=== PATIENT | male | born 1980 | race African-American/Black ===

== ENCOUNTER 2017-08-28 10:27 | Emergency (ER) | payer OTHER, MEDICAID, SELFPAY ==
[2017-08-28 10:35] VITALS: BP 122/81; PULSE 83; RESP 14; TEMP 36.2; O2SAT 98; BMI 28.8
--- NOTE | 2017-08-28 12:05 | ED_ITS ---
HPI - Back Pain/Injury <Cinthia Lazo PA-C - Last Filed: 08/28/17 15:24> General Chief Complaint: Back Pain/Injury Stated Complaint: 'BACK PAIN' Time Seen by Provider: 08/28/17 10:28 Source: patient Mode of arrival: ambulatory Limitations: no limitations History of Present Illness HPI Narrative: This 37-year-old patient complains of a 3 day history of mid to low back pain which started after he was moving furniture at home. He bent over and states he felt a twisting sensation in his mid back area. He states that he has been using ibuprofen twice daily and ice, but has not really improved. He wakes feeling stiff in the morning and likely musculature his swollen. He does admit to continued lifting, states he has a new baby at home. He denies any weakness or paresthesia in the extremities. He denies any bowel or bladder changes. No new fever or rash. No other injuries or new complaints. He does have a history of sciatica but denies radiation of the pain. He states that pain is worse with certain movements like bending and twisting Related Data Home Medications Medication Instructions Recorded Confirmed ibuprofen 800 mg PO TID PRN 08/28/17 08/28/17 Previous Rx's Medication Instructions Recorded cyclobenzaprine 10 mg PO Q8H PRN #14 tab 08/28/17 Allergies Allergy/AdvReac Type Severity Reaction Status Date / Time codeine [CODEINE] Allergy Intermediate ITCH Verified 08/28/17 10:37 tramadol [TRAMADOL] Allergy Mild ITCH Verified 08/28/17 10:37 Review of Systems <Cinthia Lazo PA-C - Last Filed: 08/28/17 15:24> Review of Systems All systems reviewed & are unremarkable except as noted in HPI and below Exam <Cinthia Lazo PA-C - Last Filed: 08/28/17 15:24> Narrative Exam Narrative: GENERAL APPEARANCE: Patient sitting comfortably, in no distress. PULMONARY: Lungs clear to auscultation bilaterally CV: Regular rhythm regular without murmur, normal S1 and S2, no S3 or S4 MUSCULOSKELETAL: Generalized moderate tenderness over the midthoracic to mid lumbar musculature most at the mid scapular line bilaterally. Mild tenderness over the spine and paraspinal musculature in same locations. Full AROM shoulders with mild endpoint tenderness. Normal seated trunk flexion, sit: stand. Lower extremity strength 5/5 bilateral hip flexors, knee extensors, foot plantar flexion. Negative modified straight leg raise NEUROLOGIC: Bilateral patellar and Achilles DTRs 1+ with distraction DERM: No exanthem Course <Cinthia Lazo PA-C - Last Filed: 08/28/17 15:24> Orders Ordered: Discontinued Medications Ondansetron HCl (Zofran) 4 mg PO NOW ONE Stop: 08/28/17 10:46 Last Admin: 08/28/17 10:49 Dose: Last Vital Signs Temp 97.1 F L 08/28/17 10:35 Pulse 72 08/28/17 12:59 Resp 17 08/28/17 12:59 BP 134/99 H 08/28/17 12:59 Pulse Ox 100 08/28/17 12:59 <Mohit Howell DO - Last Filed: 08/28/17 16:14> Orders Ordered: Discontinued Medications Ondansetron HCl (Zofran) 4 mg PO NOW ONE Stop: 08/28/17 10:46 Last Admin: 08/28/17 10:49 Dose: Last Vital Signs Temp 97.1 F L 08/28/17 10:35 Pulse 72 08/28/17 12:59 Resp 17 08/28/17 12:59 BP 134/99 H 08/28/17 12:59 Pulse Ox 100 08/28/17 12:59 Discharge Plan Departure Patient Disposition: Home, Self-Care Clinical Impression: Lumbar strain, Strain of thoracic region Discharge Date/Time: 08/28/17 13:01 Interventions: ED Discharge Assessment Last Done: 08/28/17 13:00 Instructions: DI for Low Back Pain Activity Restrictions/Additional Instructions: Return as we talked about if you have acutely worsening symptoms, otherwise continue your ibuprofen but increased to 3 times daily. You can add the muscle relaxant as needed, but remember that it can make you sleepy and not to drive or work. You can continue ice it is helpful but you may want to try alternating with heat as well. You can also use topical [id number] medicines or patches such as 4% lidocaine to help with pain. Gentle activity such as walking may be helpful, but avoid repetitive bending, twisting and lifting. This is likely to take a month or 2 to fully heal. Prescriptions: New cyclobenzaprine 10 mg tablet 10 mg PO Q8H PRN (Reason: muscle spasm) Qty: 14 RF: 0 No Action ibuprofen 800 mg Tablet 800 mg PO TID PRN (Reason: Pain (Scale Score 4-6)) RF: 0 <Mohit Howell DO - Last Filed: 08/28/17 16:14> Sign out: I was immediately available in the department for consultation. Documentation has been reviewed. I agree with assessment and plan.
[2017-08-28 12:59] VITALS: BP 134/99; PULSE 72; RESP 17; O2SAT 100
== END 2017-08-28 13:01 | disposition home or self-care (01) ==
PROVIDERS: Emergency Provider Internal Medicine
DX: S39.012A Strain of muscle, fascia and tendon of lower back, initial encounter (principal); S29.019A Strain of muscle and tendon of unspecified wall of thorax, initial encounter; Y93.89 Activity, other specified
CPT/HCPCS: 99282

== ENCOUNTER 2017-10-12 19:28 | Emergency (ER) | payer OTHER, MEDICAID, SELFPAY ==
[2017-10-12 19:50] VITALS: BP 151/99; PULSE 89; RESP 15; TEMP 37; O2SAT 97; BMI 61.9
--- NOTE | 2017-10-12 20:15 | ED.DENTAL ---
HPI - Dental/Oral <Cinthia Lazo PA-C - Last Filed: 10/12/17 21:48> General Chief complaint: Dental/Oral Stated complaint: LEFT SIDE MOUTH SWELLING AND PAIN Time Seen by Provider: 10/12/17 20:15 Source: patient Mode of arrival: ambulatory Limitations: no limitations History of Present Illness HPI Narrative: Patient has a history of problems with left upper teeth that he has been seen here for in the past. He states actually after his last visit he was able to see a dentist and had the tooth extracted. Today, he is having a lot of pain in the tooth socket that is worsening. It is not draining. He has not had fever. He states his dentist was not in today and is out tomorrow, was concerned about possible recurrent infection and came here. He states the pain has been throbbing. He vomited once today he thinks due to the pain, denies any other symptoms MD Complaint: tooth pain Related Data Previous Rx's Medication Instructions Recorded clindamycin HCl 300 mg PO Q6H 7 Days #28 cap 10/12/17 Allergies Allergy/AdvReac Type Severity Reaction Status Date / Time codeine [CODEINE] Allergy Intermediate ITCH Verified 08/28/17 10:37 tramadol [TRAMADOL] Allergy Mild ITCH Verified 08/28/17 10:37 Exam <Cinthia Lazo PA-C - Last Filed: 10/12/17 21:48> Initial Vital Signs Initial Vital Signs: Vital Signs Temperature 98.6 F 10/12/17 19:50 Pulse Rate 89 10/12/17 19:50 Respiratory Rate 15 10/12/17 19:50 Blood Pressure 151/99 H 10/12/17 19:50 Pulse Oximetry 97 10/12/17 19:50 GENERAL APPEARANCE: Patient sitting comfortably, in no distress. HEAD: Moderate left maxillary tenderness EYES: PERRL, EOMI. EARS: Normal auditory canals, TMS intact with normal light reflexes. ORAL CAVITY: At the side of the left 1st upper molar tooth is absent. Socket is mildly erythematous and tender within, no drainage THROAT: Clear. NECK/THYROID: Neck supple, full range of motion, no cervical lymphadenopathy. LUNGS: Clear to auscultation bilaterally, clear to percussion, no cough on exam. HEART: RRR without murmur, nl S1, S2, no S3 or S4. <Mohit [place], DO - Last Filed: 10/13/17 03:02> Initial Vital Signs Initial Vital Signs: Vital Signs Temperature 98.6 F 10/12/17 19:50 Pulse Rate 89 10/12/17 19:50 Respiratory Rate 15 10/12/17 19:50 Blood Pressure 151/99 H 10/12/17 19:50 Pulse Oximetry 97 10/12/17 19:50 Course <Cinthia Lazo PA-C - Last Filed: 10/12/17 21:48> Additional Information: Patient is given initial dose of antibiotic and pain medication with a little bit of improvement. He did not have significant improvement with benzocaine gel and has taken more than recommended dose of ibuprofen already today. He was given a [place] prepack, ice pack, and advised to call dentist's office 1st thing again in the morning as typically there should be somebody on-call. Advised to fill the antibiotic prescription in the morning and continue it if he is not able to see the dentist and he is agreeable Orders Ordered: Discontinued Medications Hydrocodone Bitart/Acetaminophen ([place] 5/325) 1 tab PO NOW ONE Stop: 10/12/17 20:26 Last Admin: 10/12/17 20:40 Dose: 1 tab Hydrocodone Bitart/Acetaminophen (Vicodin Prepack) 1 bottle MISC SEEINSTR ONE Stop: 10/12/17 21:07 Last Admin: 10/12/17 21:22 Dose: 1 bottle Clindamycin HCl (Cleocin) 300 mg PO NOW ONE Stop: 10/12/17 20:26 Last Admin: 10/12/17 20:40 Dose: 300 mg Vital Signs - 8 hr 10/12/17 19:50 10/12/17 21:33 Temperature 98.6 F Pulse Rate 89 76 Respiratory Rate 15 15 Blood Pressure 151/99 H 174/105 H Pulse Oximetry 97 100 <Mohit Howell DO - Last Filed: 10/13/17 03:02> Orders Ordered: Discontinued Medications Hydrocodone Bitart/Acetaminophen ([place] 5/325) 1 tab PO NOW ONE Stop: 10/12/17 20:26 Last Admin: 10/12/17 20:40 Dose: 1 tab Hydrocodone Bitart/Acetaminophen (Vicodin Prepack) 1 bottle MISC SEEINSTR ONE Stop: 10/12/17 21:07 Last Admin: 10/12/17 21:22 Dose: 1 bottle Clindamycin HCl (Cleocin) 300 mg PO NOW ONE Stop: 10/12/17 20:26 Last Admin: 10/12/17 20:40 Dose: 300 mg Vital Signs - 8 hr 10/12/17 19:50 10/12/17 21:33 Temperature 98.6 F Pulse Rate 89 76 Respiratory Rate 15 15 Blood Pressure 151/99 H 174/105 H Pulse Oximetry 97 100 Discharge Plan Departure Patient Disposition: Home, Self-Care Clinical Impression: Pain, dental Discharge Date/Time: 10/12/17 21:34 Interventions: ED Discharge Assessment Last Done: 10/12/17 21:33 Instructions: DI for Dental Pain Activity Restrictions/Additional Instructions: It is difficult to tell whether your pain tonight is coming from an early infection, or a rotted tooth socket, or a little bit of both. You have been given an initial dose of antibiotic tonight and I have sent a prescription into the pharmacy for you. You also have a few pain pills for tonight and an ice pack. You should call your dentist office 1st thing in the morning as typically there will be somebody on-call for emergencies or a pager that you can reach for this even if he is not in the office. If your being seen tomorrow morning, then you can wait to orange picker the antibiotic prescription. If not, you should go ahead and continue it this weekend and see your dentist as soon as possible Prescriptions: New clindamycin HCl 300 mg capsule 300 mg PO Q6H 7 Days Qty: 28 RF: 0 Referrals: Iggy Akbar DMD [Other] <Mohit Howell DO - Last Filed: 10/13/17 03:02> [facility] Attending [place]anza Attestation: I was immediately available in the department for consultation. Documentation has been reviewed. I agree with assessment and plan.
[2017-10-12] MEDS: CLINDAMYCIN 150 MG CAPSULE 300 MG PO (20:40)
[2017-10-12] MEDS: HYDROCODONE/ACET 5/325 TABLET 1 TAB PO (20:40)
[2017-10-12] MEDS: HYDROCODONE/ACET 5/325 PREPACK 1 BOTTLE MISC (21:22)
[2017-10-12 21:33] VITALS: BP 174/105; PULSE 76; RESP 15; O2SAT 100
== END 2017-10-12 21:34 | disposition home or self-care (01) ==
PROVIDERS: Emergency Provider Internal Medicine
DX: K08.89 Other specified disorders of teeth and supporting structures (principal)
CPT/HCPCS: 99282; 99283

== ENCOUNTER 2018-04-30 06:52 | Emergency (ER) | payer OTHER, MEDICAID, SELFPAY ==
[2018-04-30 07:13] VITALS: BP 150/90; PULSE 88; RESP 13; TEMP 36.7; O2SAT 100
--- NOTE | 2018-04-30 07:27 | ED.BACK ---
HPI - Back Pain/Injury General Chief Complaint: Back Pain/Injury Stated Complaint: back pain Time Seen by Provider: 04/30/18 07:26 Source: patient and family Mode of arrival: ambulatory Limitations: no limitations History of Present Illness HPI Narrative: This is a 38-year-old male who comes to the emergency department with complaint of low back pain. Patient has had some chronic low back pain this is a little bit worse than typical. 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 He states he probably pushes about 58682 lb worth of products any given day. Patient states that he has noticed he has had pain kind of along his entire back but is a little bit worse the lower back. It just radiates down into the buttocks bilaterally. He has had a little bit of tingling in his toes. Not having any weakness. He is not having any other numbness. He is not having any saddle anesthesia. He has not had any bowel or bladder incontinence. Patient has not had any fevers, no cold cough or congestion. He states that his symptoms seem to be worse in the evening particularly when he tries to lay down and sleep or when he is less distracted by the day. He has tried ibuprofen at home without much improvement. He has not tried any muscle relaxants. Patient has not had any imaging of his back in the past. Related Data Previous Rx's Medication Instructions Recorded diazepam 2 mg PO BID-TID PRN #10 tab 04/30/18 ibuprofen 800 mg PO TID PRN #20 tab 04/30/18 Allergies Allergy/AdvReac Type Severity Reaction Status Date / Time codeine [CODEINE] Allergy Intermediate ITCH Verified 08/28/17 10:37 tramadol [TRAMADOL] Allergy Mild ITCH Verified 08/28/17 10:37 Review of Systems Review of Systems ROS Unobtainable: All systems reviewed & are unremarkable except as noted in HPI and below Constitutional Denies chills, Denies fever(s) and Denies weakness ENT Ears, Nose, Mouth, and Throat: Denies neck pain Cardiovascular Denies chest pain and Denies dyspnea Respiratory Denies cough and Denies dyspnea Gastrointestinal Gastrointestinal: Denies abdominal pain, Denies fecal incontinence, Denies diarrhea, Denies nausea and Denies vomiting Genitourinary Denies urinary hesitancy, Denies urinary incontinence and Denies urinary urgency Musculoskeletal Reports back pain, Reports limited range of motion, Denies muscle weakness, Denies neck pain, Denies numbness, Reports radiating pain into limb (bilateral thighs) and Reports tingling (toes) Integumentary/Breasts Denies rash Neurologic Denies focal weakness, Denies numbness, Reports radicular pain, Denies sensory deficit, Reports tingling (toes) and Denies weakness [facility] Medical History HTN (hypertension) (Chronic) Sciatica (Chronic) Left hand fracture (Resolved) Surgical History History of eye surgery (Resolved) Social History Smoking Status: Never smoker alcohol intake: never substance use type: marijuana Exam Narrative Exam Narrative: GENERAL: Alert and oriented x three, well-nourished, well-appearing male in moderate distress HEENT: Head normocephalic, atraumatic, EOMI, pupils reactive, face symmetric, moist mucous membranes NECK: Supple, full range of motion CARDIOVASCULAR: Regular rate and rhythm without murmurs, rubs or gallops. RESPIRATORY: Breath sounds equal bilaterally, no wheezes rales or rhonchi. ABDOMEN: Soft, nontender. Normoactive bowel sounds all 4 quadrants. No guarding or rebound, rigidity, no mass : No CVA tenderness BACK: No cervical, thoracic or lumbar vertebral point tenderness. Patient has muscle tightness on the right paraspinal and quadratus region. Patient has decreased range of motion. Patient's gait is antalgic. Muscle strength is 5/5 in lower extremities, DTRs are 2/4 and lower extremities. Dorsalis pedis and tibialis pulses are 2+ and lower extremities. Sensation is intact in the lower extremities. EXTREMITIES: Normal range of motion, no clubbing or edema. Neurovascularly intact NEUROLOGICAL: Cranial nerves II through XII grossly intact. Moving all extremities SKIN: Warm, dry, no petechiae, no rashes or lesions. Initial Vital Signs Initial Vital Signs: Vital Signs Temperature 98.1 F 04/30/18 07:13 Pulse Rate 88 04/30/18 07:13 Respiratory Rate 13 04/30/18 07:13 Blood Pressure 150/90 H 04/30/18 07:13 Pulse Oximetry 100 04/30/18 07:13 Course Orders Ordered: Discontinued Medications Diazepam (Valium) 2 mg PO NOW ONE Stop: 04/30/18 07:35 Last Admin: 04/30/18 07:51 Dose: 2 mg Ketorolac Tromethamine (Toradol) 60 mg IM NOW ONE Stop: 04/30/18 07:35 Last Admin: 04/30/18 07:42 Dose: 60 mg Vital Signs - 8 hr 04/30/18 07:13 04/30/18 08:14 Temperature 98.1 F Pulse Rate 88 88 Respiratory Rate 13 13 Blood Pressure 150/90 H 140/90 Pulse Oximetry 100 99 MDM - Back Pain/Injury Imaging Data lspine xray: Radiologist's impression: [address] [address] XRay Report Signed Patient: Hi Cueto MR#: [id number] : 1980 Acct:[id number] Age/Sex: 38 / M Date of Service: 04/30/18 Loc: ED Accession Number: [id number] Procedure: XR lumbar spine 2-3V Ordering Provider: Dee Hernandez D.O. PROCEDURE: XR LUMBAR SPINE 2-3V INDICATIONS: back pain TECHNIQUE: 3 views of the lumbar spine were acquired. COMPARISON: None. FINDINGS: Bones: 5 [id number] vertebrae are present. There is normal bony alignment. No vertebral body compression fractures. No suspicious bony lesions. Soft tissues: Overlying bowel gas pattern is normal. No suspicious soft tissue calcifications. IMPRESSION: No trauma found, source of back pain is not seen. Dictated by: Julián Singleton M.D. on 04/30/2018 at 9:00 Approved by: Julián Singleton M.D. on 04/30/2018 at 9:00 [facility] Narrative Medical decision making narrative: Patient more comfortable after medications. Given rx for ibuprofen and valium. Patient imaging does not show any concerning lesions. Plan for follow up. Work note for two days given Discharge Plan Departure Patient Disposition: Home Clinical Impression: Back pain Discharge Date/Time: 04/30/18 09:32 Interventions: ED Discharge Assessment Last Done: 04/30/18 08:14 Instructions: Back Pain (Alternative Therapy) Activity Restrictions/Additional Instructions: Follow-up with primary care, call for an appointment. Take ibuprofen 800 mg every 8 hr as needed for pain. You may also take Tylenol up to a 1000 mg every 8 hr as needed for pain. You may also take muscle relaxant every 8 hours as needed, this medication can make you sleepy so do not drive, perform hazards activities or make any major decisions while taking it. Return to the emergency department for fevers greater than 100.4, rapidly worsening back pain, new weakness, numbness, loss of bowel or bladder control or other new or concerning symptoms. Prescriptions: New diazepam 2 mg tablet 2 mg PO BID-TID PRN (Reason: muscle spasm) Qty: 10 RF: 0 ibuprofen 800 mg tablet 800 mg PO TID PRN (Reason: pain) Qty: 20 RF: 0 Referrals: [facility] [Provider Group] [facility] [Provider Group] [facility] [Provider Group] [facility] [Provider Group] Stand Alone Forms: Work Release Note
--- NOTE | 2018-04-30 07:40 | ED_ITS ---
HPI - Back Pain/Injury General Chief Complaint: Back Pain/Injury Stated Complaint: back pain Time Seen by Provider: 04/30/18 07:26 Source: patient and family Mode of arrival: ambulatory Limitations: no limitations History of Present Illness HPI Narrative: This is a 38-year-old male who comes to the emergency department with complaint of low back pain. Patient has had some chronic low back pain this is a little bit worse than typical. 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 He states he probably pushes about 99184 lb worth of products any given day. Patient states that he has noticed he has had pain kind of along his entire back but is a little bit worse the lower back. It just radiates down into the buttocks bilaterally. He has had a little bit of tingling in his toes. Not having any weakness. He is not having any other numbness. He is not having any saddle anesthesia. He has not had any bowel or bladder incontinence. Patient has not had any fevers, no cold cough or congestion. He states that his symptoms seem to be worse in the evening particularly when he tries to lay down and sleep or when he is less distracted by the day. He has tried ibuprofen at home without much improvement. He has not tried any muscle relaxants. Patient has not had any imaging of his back in the past. Related Data Previous Rx's Medication Instructions Recorded diazepam 2 mg PO BID-TID PRN #10 tab 04/30/18 ibuprofen 800 mg PO TID PRN #20 tab 04/30/18 Allergies Allergy/AdvReac Type Severity Reaction Status Date / Time codeine [CODEINE] Allergy Intermediate ITCH Verified 08/28/17 10:37 tramadol [TRAMADOL] Allergy Mild ITCH Verified 08/28/17 10:37 Review of Systems Review of Systems ROS Unobtainable: All systems reviewed & are unremarkable except as noted in HPI and below Constitutional Denies chills, Denies fever(s) and Denies weakness ENT Ears, Nose, Mouth, and Throat: Denies neck pain Cardiovascular Denies chest pain and Denies dyspnea Respiratory Denies cough and Denies dyspnea Gastrointestinal Gastrointestinal: Denies abdominal pain, Denies fecal incontinence, Denies diarrhea, Denies nausea and Denies vomiting Genitourinary Denies urinary hesitancy, Denies urinary incontinence and Denies urinary urgency Musculoskeletal Reports back pain, Reports limited range of motion, Denies muscle weakness, Denies neck pain, Denies numbness, Reports radiating pain into limb (bilateral thighs) and Reports tingling (toes) Integumentary/Breasts Denies rash Neurologic Denies focal weakness, Denies numbness, Reports radicular pain, Denies sensory deficit, Reports tingling (toes) and Denies weakness [facility] Medical History HTN (hypertension) (Chronic) Sciatica (Chronic) Left hand fracture (Resolved) Surgical History History of eye surgery (Resolved) Social History Smoking Status: Never smoker alcohol intake: never substance use type: marijuana Exam Narrative Exam Narrative: GENERAL: Alert and oriented x three, well-nourished, well- appearing male in moderate distress HEENT: Head normocephalic, atraumatic, EOMI, pupils reactive, face symmetric, moist mucous membranes NECK: Supple, full range of motion CARDIOVASCULAR: Regular rate and rhythm without murmurs, rubs or gallops. RESPIRATORY: Breath sounds equal bilaterally, no wheezes rales or rhonchi. ABDOMEN: Soft, nontender. Normoactive bowel sounds all 4 quadrants. No guarding or rebound, rigidity, no mass : No CVA tenderness BACK: No cervical, thoracic or lumbar vertebral point tenderness. Patient has muscle tightness on the right paraspinal and quadratus region. Patient has decreased range of motion. Patient's gait is antalgic. Muscle strength is 5/5 in lower extremities, DTRs are 2/4 and lower extremities. Dorsalis pedis and tibialis pulses are 2+ and lower extremities. Sensation is intact in the lower extremities. EXTREMITIES: Normal range of motion, no clubbing or edema. Neurovascularly intact NEUROLOGICAL: Cranial nerves II through XII grossly intact. Moving all extremities SKIN: Warm, dry, no petechiae, no rashes or lesions. Initial Vital Signs Initial Vital Signs: Vital Signs Temperature 98.1 F 04/30/18 07:13 Pulse Rate 88 04/30/18 07:13 Respiratory Rate 13 04/30/18 07:13 Blood Pressure 150/90 H 04/30/18 07:13 Pulse Oximetry 100 04/30/18 07:13 Course Orders Ordered: Discontinued Medications Diazepam (Valium) 2 mg PO NOW ONE Stop: 04/30/18 07:35 Last Admin: 04/30/18 07:51 Dose: 2 mg Ketorolac Tromethamine (Toradol) 60 mg IM NOW ONE Stop: 04/30/18 07:35 Last Admin: 04/30/18 07:42 Dose: 60 mg Vital Signs - 8 hr 04/30/18 07:13 04/30/18 08:14 Temperature 98.1 F Pulse Rate 88 88 Respiratory Rate 13 13 Blood Pressure 150/90 H 140/90 Pulse Oximetry 100 99 MDM - Back Pain/Injury Imaging Data lspine xray: Radiologist's impression: [address] [address] XRay Report Signed Patient: Hi Cueto MR#: [id number] : 1980 Acct:[id number] Age/Sex: 38 / M Date of Service: 04/30/18 Loc: ED Accession Number: [id number] Procedure: XR lumbar spine 2-3V Ordering Provider: Dee Hernandez D.O. PROCEDURE: XR LUMBAR SPINE 2-3V INDICATIONS: back pain TECHNIQUE: 3 views of the lumbar spine were acquired. COMPARISON: None. FINDINGS: Bones: 5 [id number] vertebrae are present. There is normal bony alignment. No vertebral body compression fractures. No suspicious bony lesions. Soft tissues: Overlying bowel gas pattern is normal. No suspicious soft tissue calcifications. IMPRESSION: No trauma found, source of back pain is not seen. Dictated by: Julián Singleton M.D. on 04/30/2018 at 9:00 Approved by: Julián Singleton M.D. on 04/30/2018 at 9:00 [facility] Narrative Medical decision making narrative: Patient more comfortable after medications. Given rx for ibuprofen and valium. Patient imaging does not show any concerning lesions. Plan for follow up. Work note for two days given Discharge Plan Departure Patient Disposition: Home Clinical Impression: Back pain Discharge Date/Time: 04/30/18 09:32 Interventions: ED Discharge Assessment Last Done: 04/30/18 08:14 Instructions: Back Pain (Alternative Therapy) Activity Restrictions/Additional Instructions: Follow-up with primary care, call for an appointment. Take ibuprofen 800 mg every 8 hr as needed for pain. You may also take Tylenol up to a 1000 mg every 8 hr as needed for pain. You may also take muscle relaxant every 8 hours as needed, this medication can make you sleepy so do not drive, perform hazards activities or make any major decisions while taking it. Return to the emergency department for fevers greater than 100.4, rapidly worsening back pain, new weakness, numbness, loss of bowel or bladder control or other new or concerning symptoms. Prescriptions: New diazepam 2 mg tablet 2 mg PO BID-TID PRN (Reason: muscle spasm) Qty: 10 RF: 0 ibuprofen 800 mg tablet 800 mg PO TID PRN (Reason: pain) Qty: 20 RF: 0 Referrals: [facility] [Provider Group] [facility] [Provider Group] [facility] [Provider Group] [facility] [Provider Group] Stand Alone Forms: Work Release Note
[2018-04-30] MEDS: KETOROLAC 60 MG/2 ML VIAL IM (07:42)
[2018-04-30] MEDS: diazePAM 2 MG TABLET PO (07:51)
[2018-04-30 08:14] VITALS: BP 140/90; PULSE 88; RESP 13; O2SAT 99
--- NOTE | 2018-04-30 08:22 | DI.RAD.S_ITS ---
PROCEDURE: XR LUMBAR SPINE 2-3V INDICATIONS: back pain TECHNIQUE: 3 views of the lumbar spine were acquired. COMPARISON: None. FINDINGS: Bones: 5 [id number] vertebrae are present. There is normal bony alignment. No vertebral body compression fractures. No suspicious bony lesions. Soft tissues: Overlying bowel gas pattern is normal. No suspicious soft tissue calcifications. IMPRESSION: No trauma found, source of back pain is not seen. Dictated by: Julián Singleton M.D. on 04/30/2018 at 9:00 Approved by: Julián Singleton M.D. on 04/30/2018 at 9:00
== END 2018-04-30 09:32 | disposition home or self-care (01) ==
PROVIDERS: Emergency Provider Emergency Medicine
DX: M54.9 Dorsalgia, unspecified (principal)
CPT/HCPCS: 72100; 96372; 99282; 99283; J1885

== ENCOUNTER 2018-05-01 10:48 | Emergency (ER) | payer OTHER, MEDICAID, SELFPAY ==
[2018-05-01 10:50] VITALS: BP 160/90; PULSE 90; RESP 16; TEMP 37.1; O2SAT 98
--- NOTE | 2018-05-01 11:20 | ED.BACK ---
HPI - Back Pain/Injury General Chief Complaint: Back Pain/Injury Stated Complaint: back pain getting worse Time Seen by Provider: 05/01/18 11:14 Source: patient Mode of arrival: ambulatory Limitations: no limitations History of Present Illness HPI Narrative: Patient is a 38-year-old male presenting with back pain. He was seen evaluated yesterday for the same. He said Toradol helped immensely however today at work he got sent home because his pain is much worse. He does push out of 20,000-30,000 lb of product daily. He has some bilateral gluteal pain along with right little toe numbness. No lower extremity weakness. It does go laterally down the leg. No changes in bowel or bladder habits. He was also given Valium yesterday without any relief. He denies any specific injuries or fall. MD Complaint: back pain Related Data Previous Rx's Medication Instructions Recorded diazepam 2 mg PO BID-TID PRN #10 tab 04/30/18 ibuprofen 800 mg PO TID PRN #20 tab 04/30/18 meloxicam 15 mg PO DAILY PRN #30 tab 05/01/18 Allergies Allergy/AdvReac Type Severity Reaction Status Date / Time codeine [CODEINE] Allergy Intermediate ITCH Verified 08/28/17 10:37 tramadol [TRAMADOL] Allergy Mild ITCH Verified 08/28/17 10:37 Review of Systems Review of Systems GENERAL: Denies chills,fever HEENT: Denies throat pain RESPIRATORY: Denies dyspnea, cough, wheezing CARDIOVASCULAR: Denies chest pain, palpitations GASTROINTESTINAL: Denies nausea, vomiting MUSCULOSKELETAL: See HPI SKIN: No rash, no laceration, no pruritus NEUROLOGIC: Denies weakness, dizziness, headache, numbness 8 point review of systems is negative except for those stated above and HPI [facility] Medical History HTN (hypertension) (Chronic) Sciatica (Chronic) Left hand fracture (Resolved) Surgical History History of eye surgery (Resolved) Social History Smoking Status: Never smoker alcohol intake: never substance use type: marijuana Exam Initial Vital Signs Initial Vital Signs: Vital Signs Temperature 98.7 F 05/01/18 10:50 Pulse Rate 90 05/01/18 10:50 Respiratory Rate 16 05/01/18 10:50 Blood Pressure 160/90 H 05/01/18 10:50 Pulse Oximetry 98 05/01/18 10:50 GENERAL: Well-appearing, well-nourished and in no acute distress. CARDIOVASCULAR: peripheral pulses in tact, cap refill <2 sec RESPIRATORY: No respiratory distress, speaks in full sentences without difficulty EXTREMITIES: Normal range of motion, no clubbing or edema. Neurovascularly intact BACK: No midline or vertebrals step-offs. Pain in lower lumbar area and paraspinal muscle tenderness. Decreased sensation right lower leg compared to left leg with light touch. Strength equal bilaterally 5/5 NEUROLOGICAL: Cranial nerves II through XII grossly intact. Normal gait and speech. SKIN: Warm, dry, no petechiae, no rashes or lesions. Course Orders Ordered: Discontinued Medications Ketorolac Tromethamine (Toradol) 60 mg IM NOW ONE Stop: 05/01/18 11:22 Last Admin: 05/01/18 11:32 Dose: 60 mg Vital Signs - 8 hr 05/01/18 11:59 Pulse Rate 83 Respiratory Rate 16 Blood Pressure [Left Arm] 146/98 H Pulse Oximetry 96 MDM - Back Pain/Injury MDM Narrative Medical decision making narrative: Patient is again better after Toradol. I recommended a few days off work. He may require physical therapy and possibly outpatient MRI. Patient does not have a PCP. I have referred him to a few places locally. At this time does not meet criteria for imaging emergently. Discharge Plan Departure Patient Disposition: Home Clinical Impression: Strain of lumbar region Discharge Date/Time: 05/01/18 12:09 Interventions: ED Discharge Assessment Last Done: 05/01/18 12:09 Instructions: DI for Low Back Pain Activity Restrictions/Additional Instructions: *You have been diagnosed with lumbar pain *What to do: No heavy lifting or pushing until back pain has improved. No sitting for long periods of. May require outpatient MRI or physical therapy-this will need to be set up by a primary care physician. Nonstrenuous light activity is encouraged Heating pad *Continue to take medications as directed Mobic 15 mg once daily-do not combine with Motrin, ibuprofen, Aleve, Advil, naproxen or any other NSAID Continue Valium as previously prescribed for muscle spasm *Follow up with your primary care provider in 2-3 days *Return to ER if you should have weakness in lower extremities, or any new, worsening or concerning symptoms Prescriptions: New meloxicam 15 mg tablet 15 mg PO DAILY PRN (Reason: pain, severe) Qty: 30 RF: 0 No Action diazepam 2 mg tablet 2 mg PO BID-TID PRN (Reason: muscle spasm) Qty: 10 RF: 0 ibuprofen 800 mg tablet 800 mg PO TID PRN (Reason: pain) Qty: 20 RF: 0 Referrals: [facility] [Provider Group] [facility] [Provider Group] Stand Alone Forms: Work Release Note
--- NOTE | 2018-05-01 11:28 | ED_ITS ---
HPI - Back Pain/Injury General Chief Complaint: Back Pain/Injury Stated Complaint: back pain getting worse Time Seen by Provider: 05/01/18 11:14 Source: patient Mode of arrival: ambulatory Limitations: no limitations History of Present Illness HPI Narrative: Patient is a 38-year-old male presenting with back pain. He was seen evaluated yesterday for the same. He said Toradol helped immensely however today at work he got sent home because his pain is much worse. He does push out of 20,000-30,000 lb of product daily. He has some bilateral gluteal pain along with right little toe numbness. No lower extremity weakness. It does go laterally down the leg. No changes in bowel or bladder habits. He was also given Valium yesterday without any relief. He denies any specific injuries or fall. MD Complaint: back pain Related Data Previous Rx's Medication Instructions Recorded diazepam 2 mg PO BID-TID PRN #10 tab 04/30/18 ibuprofen 800 mg PO TID PRN #20 tab 04/30/18 meloxicam 15 mg PO DAILY PRN #30 tab 05/01/18 Allergies Allergy/AdvReac Type Severity Reaction Status Date / Time codeine [CODEINE] Allergy Intermediate ITCH Verified 08/28/17 10:37 tramadol [TRAMADOL] Allergy Mild ITCH Verified 08/28/17 10:37 Review of Systems Review of Systems GENERAL: Denies chills,fever HEENT: Denies throat pain RESPIRATORY: Denies dyspnea, cough, wheezing CARDIOVASCULAR: Denies chest pain, palpitations GASTROINTESTINAL: Denies nausea, vomiting MUSCULOSKELETAL: See HPI SKIN: No rash, no laceration, no pruritus NEUROLOGIC: Denies weakness, dizziness, headache, numbness 8 point review of systems is negative except for those stated above and HPI [facility] Medical History HTN (hypertension) (Chronic) Sciatica (Chronic) Left hand fracture (Resolved) Surgical History History of eye surgery (Resolved) Social History Smoking Status: Never smoker alcohol intake: never substance use type: marijuana Exam Initial Vital Signs Initial Vital Signs: Vital Signs Temperature 98.7 F 05/01/18 10:50 Pulse Rate 90 05/01/18 10:50 Respiratory Rate 16 05/01/18 10:50 Blood Pressure 160/90 H 05/01/18 10:50 Pulse Oximetry 98 05/01/18 10:50 GENERAL: Well-appearing, well-nourished and in no acute distress. CARDIOVASCULAR: peripheral pulses in tact, cap refill <2 sec RESPIRATORY: No respiratory distress, speaks in full sentences without difficulty EXTREMITIES: Normal range of motion, no clubbing or edema. Neurovascularly intact BACK: No midline or vertebrals step-offs. Pain in lower lumbar area and paraspinal muscle tenderness. Decreased sensation right lower leg compared to left leg with light touch. Strength equal bilaterally 5/5 NEUROLOGICAL: Cranial nerves II through XII grossly intact. Normal gait and speech. SKIN: Warm, dry, no petechiae, no rashes or lesions. Course Orders Ordered: Discontinued Medications Ketorolac Tromethamine (Toradol) 60 mg IM NOW ONE Stop: 05/01/18 11:22 Last Admin: 05/01/18 11:32 Dose: 60 mg Vital Signs - 8 hr 05/01/18 11:59 Pulse Rate 83 Respiratory Rate 16 Blood Pressure [Left Arm] 146/98 H Pulse Oximetry 96 MDM - Back Pain/Injury MDM Narrative Medical decision making narrative: Patient is again better after Toradol. I recommended a few days off work. He may require physical therapy and possibly outpatient MRI. Patient does not have a PCP. I have referred him to a few places locally. At this time does not meet criteria for imaging emergently. Discharge Plan Departure Patient Disposition: Home Clinical Impression: Strain of lumbar region Discharge Date/Time: 05/01/18 12:09 Interventions: ED Discharge Assessment Last Done: 05/01/18 12:09 Instructions: DI for Low Back Pain Activity Restrictions/Additional Instructions: *You have been diagnosed with lumbar pain *What to do: No heavy lifting or pushing until back pain has improved. No sitting for long periods of. May require outpatient MRI or physical therapy- this will need to be set up by a primary care physician. Nonstrenuous light activity is encouraged Heating pad *Continue to take medications as directed Mobic 15 mg once daily-do not combine with Motrin, ibuprofen , Aleve, Advil, naproxen or any other NSAID Continue Valium as previously prescribed for muscle spasm *Follow up with your primary care provider in 2-3 days *Return to ER if you should have weakness in lower extremities, or any new, worsening or concerning symptoms Prescriptions: New meloxicam 15 mg tablet 15 mg PO DAILY PRN (Reason: pain, severe) Qty: 30 RF: 0 No Action diazepam 2 mg tablet 2 mg PO BID-TID PRN (Reason: muscle spasm) Qty: 10 RF: 0 ibuprofen 800 mg tablet 800 mg PO TID PRN (Reason: pain) Qty: 20 RF: 0 Referrals: [facility] [Provider Group] [facility] [Provider Group] Stand Alone Forms: Work Release Note
[2018-05-01] MEDS: KETOROLAC 60 MG/2 ML VIAL IM (11:32)
[2018-05-01 11:59] VITALS: BP 146/98; PULSE 83; RESP 16; O2SAT 96
== END 2018-05-01 12:09 | disposition home or self-care (01) ==
PROVIDERS: Emergency Provider Emergency Medicine
DX: S39.012A Strain of muscle, fascia and tendon of lower back, initial encounter (principal)
CPT/HCPCS: 96372; 99282; 99283; J1885

== ENCOUNTER 2018-05-14 15:31 | Emergency (ER) | payer OTHER, MEDICAID, SELFPAY ==
[2018-05-14 16:09] VITALS: BP 144/102; PULSE 80; RESP 14; TEMP 36.4; O2SAT 100; BMI 27.8
== END 2018-05-14 18:44 | disposition left against medical advice (07) ==
DX: J02.0 Streptococcal pharyngitis (principal)
CPT/HCPCS: 99282

== ENCOUNTER 2018-05-15 13:21 | Emergency (ER) | payer OTHER, MEDICAID, SELFPAY ==
[2018-05-15 13:29] VITALS: BP 144/100; PULSE 85; RESP 15; TEMP 36.5; O2SAT 98; BMI 27.8
[2018-05-15 15:41] VITALS: BP 151/97; PULSE 73; RESP 19; TEMP 36.9; O2SAT 100
[2018-05-15 16:23] LABS: Add Manual Diff / Slide Review NO; Basophils Absolute Auto 100 /uL (0-100); Basophils Percent Auto 0.6 % (0-2); Eosinophils Absolute Auto 1100 /uL (0-450); Eosinophils Percent Auto 12.4 % (2-4); Hematocrit 42.8 % (41-53); Lymphocytes Absolute Auto 2300 /uL (1100-4500); Lymphocytes Percent Auto 26.3 % (25-40); Mean Corpuscular HGB Conc 32.7 % (30-36); Mean Corpuscular Hemoglobin 26.5 PG (26-34); Monocytes Absolute Auto 1400 /uL (0-900); Monocytes Percent Auto 15.8 % (3-14); Neutrophils Absolute Auto 4000 /uL (1500-7000); Neutrophils Percent Auto 44.9 % (50-75); Platelet Count 365 X10^3/uL (150-400); Red Blood Cell Count 5.29 X10^6/uL (4.5-5.9); Red Cell Distribution Width 13.1 % (11.6-14.8); White Blood Cell Count 8.9 X10^3/uL (4.5-11.0)
[2018-05-15 16:35] LABS: Alanine Aminotransferase 92 IU/L (21-72); Albumin 4.4 g/dL (3.5-5.0); Alkaline Phosphatase 92 U/L (38-126); Amylase 65 U/L (30-110); Aspartate Aminotransferase 56 IU/L (17-59); BUN Creatinine Ratio 12.2 (6-22); Bilirubin Total 0.3 mg/dL (0.2-1.3); Blood Urea Nitrogen 11 mg/dL (9-20); Calcium 9.7 mg/dL (8.4-10.2); Carbon Dioxide 30 mmol/L (22-32); Chloride 101 mmol/L (98-107); Estimated Glomerular Filt Rate > 60.0 mL/min (>60); Globulin 4.2 g/dL (1.7-4.1); Glucose 86 mg/dL (70-100); HEMOLYSIS < 15 (0-50); Lipase 26 U/L (23-300); Potassium 4.1 mmol/L (3.4-5.1); Sodium 140 mmol/L (137-145); Total Protein 8.6 g/dL (6.3-8.2)
[2018-05-15 18:11] LABS: Bacteria Urine None Seen; RBC Urine None Seen (0-5/HPF)
[2018-05-15 18:22] LABS: Culture Indicated Urine Cult Not Indicated; WBC Urine 1-5/HPF (0-5/HPF)
[2018-05-15] MEDS: CYCLOBENZAPRINE 10 MG TABLET PO (18:26)
--- NOTE | 2018-05-15 18:43 | ED_ITS ---
HPI - Back Pain/Injury <JEREMIE Dixon- - Last Filed: 05/15/18 20:59> General Chief Complaint: Back Pain/Injury Stated Complaint: BACK PAIN Time Seen by Provider: 05/15/18 16:02 Source: patient Mode of arrival: ambulatory Limitations: no limitations History of Present Illness HPI Narrative: Patient is a 38-year-old male with history of hypertension active marijuana smoker presents with a chief complaint of back pain. He has been in the emergency department several times since August with similar complaints. He has tried ibuprofen, meloxicam, diazepam. He states that today the pain is radiating from his lower back and radiating around his stomach. He denies any nausea vomiting diarrhea. He denies any fever. Denies any chest pain shortness of breath. He denies any numbness or tingling, denies any incontinence of urine or incontinence of stool. He denies any dysuria urgency or frequency. He denies any weakness. Related Data Previous Rx's Medication Instructions Recorded diazepam 2 mg PO BID-TID PRN #10 tab 04/30/18 ibuprofen 800 mg PO TID PRN #20 tab 04/30/18 meloxicam 15 mg PO DAILY PRN #30 tab 05/01/18 cyclobenzaprine 10 mg PO TID PRN #30 tab 05/15/18 Allergies Allergy/AdvReac Type Severity Reaction Status Date / Time codeine [CODEINE] Allergy Intermediate ITCH Verified 05/15/18 13:29 tramadol [TRAMADOL] Allergy Mild ITCH Verified 05/15/18 13:29 Review of Systems <ISAMAR Dixon - Last Filed: 05/15/18 20:59> Review of Systems GENERAL: Denies chills, fatigue, malaise, fever, sweats. HEENT: Denies sinus pain, ear pain, sore throat, difficulty swallowing, dizziness. RESPIRATORY: Denies dyspnea, cough, wheezing, hemoptysis, sputum. CARDIOVASCULAR: Denies chest pain, palpitations, orthopnea, edema, GASTROINTESTINAL: Denies nausea, vomiting, abdominal pain, diarrhea, constipation, melena. : Denies dysuria, frequency, incontinence, hematuria, urinary retention. MUSCULOSKELETAL: See HPI SKIN: Denies rash, skin lesions, or other NEUROLOGIC: Denies weakness, headache, numbness, change in speech, confusion, seizures, incoordination. PSYCHIATRIC: No concerning psychosocial issues. 12 point review of systems is negative except for those stated above Exam <ALLI Dixon - Last Filed: 05/15/18 20:59> Narrative Exam Narrative: GENERAL: This is a well-nourished, well-developed patient, in no acute distress HEAD: Atraumatic. Normocephalic. No temporal or scalp tenderness. EYES: Pupils equal round and reactive. Extraocular motions intact. No scleral icterus. No injection or drainage. ENT: Nose without bleeding, purulent drainage or septal hematoma. Throat without erythema, tonsillar hypertrophy or exudate. Uvula midline. Airway patent. No nystagmus. NECK: Trachea midline. No JVD or lymphadenopathy. Supple, nontender, no meningeal signs. CARDIOVASCULAR: Regular rate and rhythm without murmurs, gallops, or rubs. RESPIRATORY: Clear to auscultation. Breath sounds equal bilaterally. No wheezes , rales, or rhonchi. GASTROINTESTINAL: Abdomen soft, diffusely tender, nondistended. No hepato- splenomegaly, or palpable masses. No guarding. No pain at McBurney's point. Nonrigid abdomen. EXTREMITIES: No clubbing, cyanosis, or edema. No joint tenderness, effusion, or edema noted. BACK: No pain to palpation C-spine or spine. Patient has pain up on the thoracic paraspinal muscles bilaterally. NEURO: AOx3. Strength is equal upper and lower extremities bilaterally. Patellar and radial reflexes intact bilaterally. SKIN: No rash or erythema. Initial Vital Signs Initial Vital Signs: Vital Signs Temperature 97.7 F 05/15/18 13:29 Pulse Rate 85 05/15/18 13:29 Respiratory Rate 15 05/15/18 13:29 Blood Pressure 144/100 H 05/15/18 13:29 Pulse Oximetry 98 05/15/18 13:29 <Estrella Nolan DO - Last Filed: 05/16/18 09:48> Initial Vital Signs Initial Vital Signs: Vital Signs Temperature 97.7 F 05/15/18 13:29 Pulse Rate 85 05/15/18 13:29 Respiratory Rate 15 05/15/18 13:29 Blood Pressure 144/100 H 05/15/18 13:29 Pulse Oximetry 98 05/15/18 13:29 Course <ALLI Dixon - Last Filed: 05/15/18 20:59> Orders Ordered: Discontinued Medications Cyclobenzaprine HCl (Flexeril) 10 mg PO NOW ONE Stop: 05/15/18 18:17 Last Admin: 05/15/18 18:26 Dose: 10 mg Ketorolac Tromethamine (Toradol) 60 mg IM NOW ONE Stop: 05/15/18 18:41 Last Admin: 05/15/18 18:44 Dose: 60 mg Vital Signs - 8 hr 05/15/18 13:29 05/15/18 15:41 05/15/18 18:53 Temperature 97.7 F 98.4 F 98.7 F Pulse Rate 85 73 79 Respiratory Rate 15 19 16 Blood Pressure 144/100 H Blood Pressure [Right Arm] 151/97 H 151/118 H Pulse Oximetry 98 100 98 <Estrella Nolan DO - Last Filed: 05/16/18 09:48> Orders Ordered: Discontinued Medications Cyclobenzaprine HCl (Flexeril) 10 mg PO NOW ONE Stop: 05/15/18 18:17 Last Admin: 05/15/18 18:26 Dose: 10 mg Ketorolac Tromethamine (Toradol) 60 mg IM NOW ONE Stop: 05/15/18 18:41 Last Admin: 05/15/18 18:44 Dose: 60 mg Vital Signs - 8 hr 05/15/18 13:29 05/15/18 15:41 05/15/18 18:53 Temperature 97.7 F 98.4 F 98.7 F Pulse Rate 85 73 79 Respiratory Rate 15 19 16 Blood Pressure 144/100 H Blood Pressure [Right Arm] 151/97 H 151/118 H Pulse Oximetry 98 100 98 MDM - Back Pain/Injury <ISAMAR DixonBC - Last Filed: 05/15/18 20:59> Lab Data Result diagrams: 05/15/18 16:18 05/15/18 16:18 Lab Results 05/15/18 05/15/18 05/15/18 Range/Units 16:18 16:18 16:24 WBC 8.9 (4.5-11.0) X10^3/uL RBC 5.29 (4.5-5.9) X10^6/uL Hgb 14.0 (13.5-17.5) g/dL Hct 42.8 (41-53) % MCV 81.0 (80-100) fL MCH 26.5 (26-34) PG MCHC 32.7 (30-36) % RDW 13.1 (11.6-14.8) % Plt Count 365 (150-400) X10^3/uL Neut % (Auto) 44.9 L (50-75) % Lymph % (Auto) 26.3 (25-40) % [place] % (Auto) 15.8 H (3-14) % Eos % (Auto) 12.4 H (2-4) % Baso % (Auto) 0.6 (0-2) % Neut # (Auto) 4000 (7722-6344) /uL Lymph # (Auto) 2300 (0721-6959) /uL [place] # (Auto) 1400 H (0-900) /uL Eos # (Auto) 1100 H (0-450) /uL Baso # (Auto) 100 (0-100) /uL Sodium 140 (137-145) mmol/L Potassium 4.1 (3.4-5.1) mmol/L Chloride 101 (98-107) mmol/L Carbon Dioxide 30 (22-32) mmol/L BUN 11 (9-20) mg/dL Creatinine 0.90 (0.66-1.25) mg/dL Estimated GFR > 60.0 (>60) mL/min BUN/Creatinine Ratio 12.2 (6-22) Glucose 86 (70-100) mg/dL Calcium 9.7 (8.4-10.2) mg/dL Total Bilirubin 0.3 (0.2-1.3) mg/dL AST 56 (17-59) IU/L ALT 92 H (21-72) IU/L Alkaline Phosphatase 92 (38-126) U/L Total Protein 8.6 H (6.3-8.2) g/dL Albumin 4.4 (3.5-5.0) g/dL Globulin 4.2 H (1.7-4.1) g/dL Albumin/Globulin Ratio 1.0 (1.0-2.8) Amylase 65 (30-110) U/L Lipase 26 (23-300) U/L Urine RBC None seen (0-5/HPF) Urine WBC 1-5/hpf (0-5/HPF) Urine Bacteria None seen (None) Ur Culture Indicated? Cult not indicated Urine Dip Bedside Urine Glucose Negative Bedside Urine Bilirubin - Negative Bedside Urine Ketone - Negative Urine Specific [place] 1.025 Bedside Urine Occult Blood + Bedside Urine pH 6.0 Bedside Urine Protein - Negative Bedside Urine Urobilinogen - Negative Bedside Urine Nitrite - Negative Bedside Urine Leukocytes - Negative Esterase MDM Narrative Medical decision making narrative: Patient is a 38-year-old male who presents with chief complaint of abdominal and back pain. He is stable vital signs, is afebrile nontoxic-appearing. His lab work is grossly normal. His UA is grossly normal in the lab. The patient has an overall benign exam is not complain of any right foot symptoms. He is stable on his feet. He did have some relief in the emergency department from Flexeril, so I sent him home with a prescription. I discussed at length red flags return precautions the emergency department clean weakness, numbness, incontinence of bowel or bladder. Patient has no questions or concerns upon discharge. <Estrella Nolan, DO - Last Filed: 05/16/18 09:48> Lab Data Lab Results 05/15/18 05/15/18 05/15/18 Range/Units 16:18 16:18 16:24 WBC 8.9 (4.5-11.0) X10^3/uL RBC 5.29 (4.5-5.9) X10^6/uL Hgb 14.0 (13.5-17.5) g/dL Hct 42.8 (41-53) % MCV 81.0 (80-100) fL MCH 26.5 (26-34) PG MCHC 32.7 (30-36) % RDW 13.1 (11.6-14.8) % Plt Count 365 (150-400) X10^3/uL Neut % (Auto) 44.9 L (50-75) % Lymph % (Auto) 26.3 (25-40) % [place] % (Auto) 15.8 H (3-14) % Eos % (Auto) 12.4 H (2-4) % Baso % (Auto) 0.6 (0-2) % Neut # (Auto) 4000 (0802-3266) /uL Lymph # (Auto) 2300 (2092-6968) /uL [place] # (Auto) 1400 H (0-900) /uL Eos # (Auto) 1100 H (0-450) /uL Baso # (Auto) 100 (0-100) /uL Sodium 140 (137-145) mmol/L Potassium 4.1 (3.4-5.1) mmol/L Chloride 101 (98-107) mmol/L Carbon Dioxide 30 (22-32) mmol/L BUN 11 (9-20) mg/dL Creatinine 0.90 (0.66-1.25) mg/dL Estimated GFR > 60.0 (>60) mL/min BUN/Creatinine Ratio 12.2 (6-22) Glucose 86 (70-100) mg/dL Calcium 9.7 (8.4-10.2) mg/dL Total Bilirubin 0.3 (0.2-1.3) mg/dL AST 56 (17-59) IU/L ALT 92 H (21-72) IU/L Alkaline Phosphatase 92 (38-126) U/L Total Protein 8.6 H (6.3-8.2) g/dL Albumin 4.4 (3.5-5.0) g/dL Globulin 4.2 H (1.7-4.1) g/dL Albumin/Globulin Ratio 1.0 (1.0-2.8) Amylase 65 (30-110) U/L Lipase 26 (23-300) U/L Urine RBC None seen (0-5/HPF) Urine WBC 1-5/hpf (0-5/HPF) Urine Bacteria None seen (None) Ur Culture Indicated? Cult not indicated Urine Dip Bedside Urine Glucose Negative Bedside Urine Bilirubin - Negative Bedside Urine Ketone - Negative Urine Specific [place] 1.025 Bedside Urine Occult Blood + Bedside Urine pH 6.0 Bedside Urine Protein - Negative Bedside Urine Urobilinogen - Negative Bedside Urine Nitrite - Negative Bedside Urine Leukocytes - Negative Esterase Discharge Plan Departure Patient Disposition: Home Clinical Impression: Back pain Discharge Date/Time: 05/15/18 19:14 Interventions: ED Discharge Assessment Last Done: 05/15/18 19:13 Instructions: DI for Low Back Pain Activity Restrictions/Additional Instructions: Please follow-up with primary care provider as we discussed. Your lab work and urine came back normal today. Come back to the emergency department if you have any incontinence of bowel or bladder, saddle anesthesia or numbness as we discussed. Please use the muscle relaxer I am giving you as well as ice, heat and [id number] measures. Please come back to the emergency department if needed, but be sure to follow up with the primary care provider soon as possible. Prescriptions: New cyclobenzaprine 10 mg tablet 10 mg PO TID PRN (Reason: muscle spasm) Qty: 30 RF: 0 No Action meloxicam 15 mg tablet 15 mg PO DAILY PRN (Reason: pain, severe) Qty: 30 RF: 0 diazepam 2 mg tablet 2 mg PO BID-TID PRN (Reason: muscle spasm) Qty: 10 RF: 0 ibuprofen 800 mg tablet 800 mg PO TID PRN (Reason: pain) Qty: 20 RF: 0 <Estrella Nolan DO - Last Filed: 05/16/18 09:48> [facility] Attending Constanza Attestation: I was immediately available in the department for consultation. Documentation has been reviewed. I agree with assessment and plan.
[2018-05-15] MEDS: KETOROLAC 60 MG/2 ML VIAL IM (18:44)
[2018-05-15 18:53] VITALS: BP 151/118; PULSE 79; RESP 16; TEMP 37.1; O2SAT 98
== END 2018-05-15 19:14 | disposition home or self-care (01) ==
PROVIDERS: Emergency Provider Nurse Practitioner Family
DX: M54.9 Dorsalgia, unspecified (principal)
CPT/HCPCS: 80053; 81003; 81015; 82150; 83690; 85025; 96372; 99282; 99283; J1885

== ENCOUNTER 2018-06-13 08:50 | Emergency (ER) | payer OTHER, MEDICAID, SELFPAY ==
[2018-06-13] VITALS (7 sets, daily range): BP systolic 142–158; BP diastolic 106–128; PULSE 80–88; RESP 15–24; TEMP 36.5; O2SAT 97–99; BMI 28.8
--- NOTE | 2018-06-13 09:13 | DI.RAD.S_ITS ---
PROCEDURE: XR CHEST 1V INDICATIONS: chest pain TECHNIQUE: One view of the chest was acquired. COMPARISON: None. FINDINGS: Surgical changes and devices: None. Lungs and pleura: Lungs are clear. No pleural effusions or pneumothorax. Mediastinum: Mediastinal contours appear normal. Heart size is normal. Bones and chest wall: No suspicious bony lesions. Overlying soft tissues appear unremarkable. IMPRESSION: No acute cardiopulmonary disease process. Dictated by: Imani Paris MD, PhD on 06/13/2018 at 9:25 Approved by: Imani Paris MD, PhD on 06/13/2018 at 9:25
--- NOTE | 2018-06-13 09:19 | PC.NURSE ---
pt reports, left chest and abdominal tightening, symptoms for one month, worsen when laying on the left side, pt has been taking melaxicam, flexeril and prednisone. denies fever,nausea or vomiting, had normal bm today. reports, has 8/10 side of abdominal discomfort at this time pt alert and awake, skin warm dry pink, bilateral pulses + (radial) abdominal tenderness with palpation left upper and right upper abdomin. +bt, soft to palpate.
[2018-06-13] MEDS: SODIUM CHLORIDE 0.9% 1,000 ML 150 ML IV (10:03)
[2018-06-13] MEDS: ASPIRIN 81 MG TAB 324 MG PO (10:03)
[2018-06-13 10:11] LABS: Add Manual Diff / Slide Review NO; Basophils Absolute Auto 100 /uL (0-100); Basophils Percent Auto 1.4 % (0-2); Eosinophils Absolute Auto 500 /uL (0-450); Eosinophils Percent Auto 6.5 % (2-4); Hematocrit 42.8 % (41-53); Hemoglobin 13.9 g/dL (13.5-17.5); Lymphocytes Absolute Auto 2100 /uL (1100-4500); Lymphocytes Percent Auto 29.7 % (25-40); Mean Corpuscular HGB Conc 32.5 % (30-36); Mean Corpuscular Hemoglobin 26.6 PG (26-34); Mean Corpuscular Volume 81.8 fL (80-100); Monocytes Absolute Auto 1000 /uL (0-900); Monocytes Percent Auto 14.3 % (3-14); Neutrophils Absolute Auto 3400 /uL (1500-7000); Neutrophils Percent Auto 48.1 % (50-75); Platelet Count 327 X10^3/uL (150-400); Red Blood Cell Count 5.23 X10^6/uL (4.5-5.9); Red Cell Distribution Width 13.5 % (11.6-14.8)
[2018-06-13 10:12] LABS: Alanine Aminotransferase 29 IU/L (21-72); Albumin 4.3 g/dL (3.5-5.0); Alkaline Phosphatase 67 U/L (38-126); Aspartate Aminotransferase 23 IU/L (17-59); BUN Creatinine Ratio 12.2 (6-22); Bilirubin Total 0.3 mg/dL (0.2-1.3); Blood Urea Nitrogen 11 mg/dL (9-20); Calcium 9.5 mg/dL (8.4-10.2); Carbon Dioxide 28 mmol/L (22-32); Chloride 106 mmol/L (98-107); Creatine Kinase 103 U/L (55-170); Estimated Glomerular Filt Rate > 60.0 mL/min (>60); Globulin 4.1 g/dL (1.7-4.1); Glucose 90 mg/dL (70-100); HEMOLYSIS < 15 (0-50); Lipase 41 U/L (23-300); Potassium 4.2 mmol/L (3.4-5.1); Sodium 141 mmol/L (137-145); Total Protein 8.4 g/dL (6.3-8.2)
[2018-06-13 10:23] LABS: Troponin I < 0.012 ng/mL (0.01-0.034)
[2018-06-13 10:27] LABS: CKMB % Relative Index 0.6 % (1.5-5.0); Creatine Kinase MB 0.63 ng/mL (<2.37)
--- NOTE | 2018-06-13 11:22 | ED.CHESTPAIN ---
HPI - Chest Pain General Chief Complaint: Chest Pain Stated Complaint: CHEST PAIN Time Seen by Provider: 06/13/18 11:20 Source: patient and old records reviewed Mode of arrival: ambulatory Limitations: no limitations History of Present Illness HPI narrative: this is a pleasant 38-year-old gentleman who comes to the emergency complaint of left-sided chest, back and abdominal pain. Patient states that his symptoms started about 5:00 a.m. this morning he states he was in bed he over and had pain sort of on the left side of his chest. It also radiated down into his belly and onto both sides. Patient has had chronic issues with his back. He states that typically his back pain better when he is active and he still or moving he is trying to sleep he has difficulty today he states that he was also having some of that back pain as. Patient denies any shortness of, he denies nausea no vomiting no diaphoresis no diarrhea or constipation. He states that this is a little bit different than his typical symptoms. He has not had any cold cough congestion. No fevers. He does have a history hypertension he has finally been able to establish with a primary care they are doing regular blood pressure readings this week and he is following up next week about possibly starting medication. He has also been referred for some further radiology imaging and potentially pain management for his back. Patient otherwise has been healthy he states his dad's probably in 60s, he is unsure but thinks his dad may have had some cardiac issues. He does know he had uncle who young from what they suspected was a sudden cardiac . Patient has had some metal in his jaw. He works a very physical job. Related Data Previous Rx's Medication Instructions Recorded diazepam 2 mg PO BID-TID PRN #10 tab 04/30/18 ibuprofen 800 mg PO TID PRN #20 tab 04/30/18 meloxicam 15 mg PO DAILY PRN #30 tab 05/01/18 cyclobenzaprine 10 mg PO TID PRN #30 tab 05/15/18 Allergies Allergy/AdvReac Type Severity Reaction Status Date / Time codeine [CODEINE] Allergy Intermediate ITCH Verified 06/13/18 08:53 tramadol [TRAMADOL] Allergy Mild ITCH Verified 06/13/18 08:53 Review of Systems Review of Systems ROS Unobtainable: All systems reviewed & are unremarkable except as noted in HPI and below Constitutional Denies chills, Denies fever(s), Denies lethargy and Denies weakness Cardiovascular Reports chest pain, Reports chest pain at rest, Denies chest pain with activity, Denies diaphoresis, Denies syncope, Denies rapid heart rate, Denies edema, Denies irregular heart rhythm, Denies lightheadedness, Denies palpitations, Denies dyspnea, Denies dyspnea on exertion and Denies orthopnea Respiratory Denies change in phlegm color, Denies chest congestion, Denies cough, Reports pain on inspiration, Denies pain with cough, Denies dyspnea, Denies dyspnea on exertion and Denies wheezing Gastrointestinal Gastrointestinal: Denies abdominal pain, Denies change in bowel habits, Denies diarrhea, Denies nausea and Denies vomiting Genitourinary Denies hematuria, Denies flank pain, Denies urinary incontinence and Denies urinary urgency Musculoskeletal Reports back pain, Denies arthralgias, Denies muscle weakness, Denies numbness, Reports stiffness and Denies tingling Integumentary/Breasts Denies rash Neurologic Denies syncope, Denies numbness, Denies tingling and Denies weakness Endocrine Denies palpitations Allergic/Immunologic Denies wheezing [facility] Medical History HTN (hypertension) (Chronic) Sciatica (Chronic) Left hand fracture (Resolved) Surgical History History of eye surgery (Resolved) Social History Smoking Status: Never smoker alcohol intake: never substance use type: marijuana Social History Smoking Status: Never smoker alcohol intake: never substance use type: marijuana Exam Narrative Exam Narrative: GENERAL: Alert and oriented x three, Well-nourished, well-appearing male in no acute distress. HEENT: Head normocephalic, atraumatic, EOMI, pupils reactive, face symmetric, moist mucous membranes NECK: Supple, full range of motion CARDIOVASCULAR: Regular rate and rhythm without murmurs, rubs or gallops. no edema bilateral lower extremities. 2+ pulses bilateral lower extremities. RESPIRATORY: Breath sounds equal bilaterally, no wheezes rales or rhonchi. ABDOMEN: Soft, nontender. Normoactive bowel sounds all 4 quadrants. No guarding or rebound, rigidity, no mass , no bruit or pulsatile mass. : No CVA tenderness BACK: No cervical, thoracic or lumbar vertebral point tenderness. Patient has normal range of motion. NEUROLOGICAL: Cranial nerves II through XII grossly intact. Moving all extremities SKIN: Warm, dry, no petechiae, no rashes or lesions. Initial Vital Signs Initial Vital Signs: Vital Signs Temperature 97.7 F 06/13/18 08:58 Pulse Rate 82 06/13/18 08:58 Respiratory Rate 15 06/13/18 08:58 Blood Pressure 148/106 H 06/13/18 08:58 Pulse Oximetry 98 06/13/18 08:58 Scores HEART Score Heart Score history: Slightly Suspicious Heart Score EKG: Non-Specific repolarization disturbance Heart Score Age: < 45 years old Heart Score risk factors: 1-2 risk factors Heart Score troponin: < or = to normal limit Heart Score Total: 2 Course Orders Ordered: ED Orders 06/13/18 08:53 EKG-12 Lead Stat 06/13/18 09:13 XR chest 1V Stat 06/13/18 09:45 Complete Blood Count AUTO DIFF Stat Comprehensive Metabolic Panel Stat Lipase Stat Troponin & CK Cardiac Panel Stat 06/13/18 11:30 Urine Microscopic Stat Discontinued Medications Aspirin (Aspirin Chew) 324 mg PO NOW ONE Stop: 06/13/18 09:14 Last Admin: 06/13/18 10:03 Dose: 324 mg Sodium Chloride (Normal Saline 0.9%) 1,000 mls @ 150 mls/hr IV CONT MULU Last Infusion: 06/13/18 11:48 Dose: 0 mls/hr Infusion: 06/13/18 11:48 Dose: 0 mls/hr Admin: 06/13/18 10:03 Dose: 150 mls/hr Vital Signs - 8 hr 06/13/18 10:00 06/13/18 10:30 06/13/18 11:00 Pulse Rate 88 80 86 Respiratory Rate 16 16 17 Blood Pressure [Right Arm] 146/115 H 153/119 H 158/128 H Pulse Oximetry 97 99 99 06/13/18 11:33 Pulse Rate 88 Respiratory Rate 18 Blood Pressure [Right Arm] 151/112 H Pulse Oximetry 98 MDM - Chest Pain Lab Data Attestation: I reviewed the patient's lab results. Result diagrams: 06/13/18 09:45 06/13/18 09:45 Lab Results 06/13/18 06/13/18 06/13/18 Range/Units 09:45 09:45 11:30 WBC 7.0 (4.5-11.0) X10^3/uL RBC 5.23 (4.5-5.9) X10^6/uL Hgb 13.9 (13.5-17.5) g/dL Hct 42.8 (41-53) % MCV 81.8 (80-100) fL MCH 26.6 (26-34) PG MCHC 32.5 (30-36) % RDW 13.5 (11.6-14.8) % Plt Count 327 (150-400) X10^3/uL Neut % (Auto) 48.1 L (50-75) % Lymph % (Auto) 29.7 (25-40) % [place] % (Auto) 14.3 H (3-14) % Eos % (Auto) 6.5 H (2-4) % Baso % (Auto) 1.4 (0-2) % Neut # (Auto) 3400 (9566-0961) /uL Lymph # (Auto) 2100 (7783-0965) /uL [place] # (Auto) 1000 H (0-900) /uL Eos # (Auto) 500 H (0-450) /uL Baso # (Auto) 100 (0-100) /uL Sodium 141 (137-145) mmol/L Potassium 4.2 (3.4-5.1) mmol/L Chloride 106 (98-107) mmol/L Carbon Dioxide 28 (22-32) mmol/L BUN 11 (9-20) mg/dL Creatinine 0.90 (0.66-1.25) mg/dL Estimated GFR > 60.0 (>60) mL/min BUN/Creatinine Ratio 12.2 (6-22) Glucose 90 (70-100) mg/dL Calcium 9.5 (8.4-10.2) mg/dL Total Bilirubin 0.3 (0.2-1.3) mg/dL AST 23 (17-59) IU/L ALT 29 (21-72) IU/L Alkaline Phosphatase 67 (38-126) U/L Total Creatine Kinase 103 (55-170) U/L CK-MB (CK-2) 0.63 (<2.37) ng/mL CK-MB (CK-2) Rel Index 0.6 L (1.5-5.0) % Troponin I < 0.012 (0.01-0.034) ng/mL Total Protein 8.4 H (6.3-8.2) g/dL Albumin 4.3 (3.5-5.0) g/dL Globulin 4.1 (1.7-4.1) g/dL Albumin/Globulin Ratio 1.0 (1.0-2.8) Lipase 41 (23-300) U/L Urine RBC 0-1/hpf (0-5/HPF) Urine WBC 0-1/hpf (0-5/HPF) Urine Bacteria Few (2-10) H (None) Ur Culture Indicated? Cult not indicated Urine Dip Bedside Urine Glucose Negative Bedside Urine Bilirubin - Negative Bedside Urine Ketone - Negative Urine Specific [place] 1.025 Bedside Urine Occult Blood + Bedside Urine pH 5.5 Bedside Urine Protein - Negative Bedside Urine Urobilinogen - Negative Bedside Urine Nitrite - Negative Bedside Urine Leukocytes - Negative Esterase Imaging Data Chest x-ray: Radiologist's impression: [place] [address] XRay Report Signed Patient: Hi CuetoMR#: [id number] : 1980Acct:[id number] Age/Sex: 38 / MDate of Service: 06/13/18 Loc: ED Accession Number: [id number] Procedure: XR chest 1V Ordering Provider: Dee Hernandez D.O. PROCEDURE: XR CHEST 1V INDICATIONS: chest pain TECHNIQUE: One view of the chest was acquired. COMPARISON: None. FINDINGS: Surgical changes and devices: None. Lungs and pleura: Lungs are clear. No pleural effusions or pneumothorax. Mediastinum: Mediastinal contours appear normal. Heart size is normal. Bones and chest wall: No suspicious bony lesions. Overlying soft tissues appear unremarkable. IMPRESSION: No acute cardiopulmonary disease process. Dictated by: Imani Paris MD, PhD on 06/13/2018 at 9:25 Approved by: Imani Paris MD, PhD on 06/13/2018 at 9:25 ECG Data Attestation: I personally reviewed and interpreted this ECG as follows: Prior ECG tracings: available for review Interpretation: Sinus rhythm with a rate 81 P are 195 [place] [address] elevation appreciated. Patient has Q-waves in 2 3 and AVF with a little bit of ST depression in 3. Patient's EKG appears similar from 03/05/2011 MDM Narrative Medical decision making narrative: Patient's EKG lab work and imaging or evaluated. Patient's does not have an elevation in his troponin. By patient's history my suspicion for cardiac cause is much lower patient does have some risk factors. He likely has hypertension and has been started on medication soon. He has a possible family history although he was a little unclear about his history as he has not been in contact with his father for many years. Patient states pain is worse at this time with movement but typically is better when he is not moving. He is asymptomatic at this time. Discharge Plan Departure Patient Disposition: Home Clinical Impression: Atypical chest pain Discharge Date/Time: 06/13/18 12:13 Interventions: ED Discharge Assessment Last Done: 06/13/18 12:13 Instructions: DI for Atypical Chest Pain Activity Restrictions/Additional Instructions: Follow-up with Dr. cruz at your scheduled appointment next week. Continue your home medications as prescribed. Return to the emergency department for new or worsening chest pain, new shortness of breath, diaphoresis or being very sweaty, persistent nausea or vomiting, passing out or other new or concerning symptoms. Prescriptions: No Action meloxicam 15 mg tablet 15 mg PO DAILY PRN (Reason: pain, severe) Qty: 30 RF: 0 cyclobenzaprine 10 mg tablet 10 mg PO TID PRN (Reason: muscle spasm) Qty: 30 RF: 0 diazepam 2 mg tablet 2 mg PO BID-TID PRN (Reason: muscle spasm) Qty: 10 RF: 0 ibuprofen 800 mg tablet 800 mg PO TID PRN (Reason: pain) Qty: 20 RF: 0 Referrals: Edvin Cruz MD [Primary Care Provider] -
--- NOTE | 2018-06-13 11:25 | ED_ITS ---
HPI - Chest Pain General Chief Complaint: Chest Pain Stated Complaint: CHEST PAIN Time Seen by Provider: 06/13/18 11:20 Source: patient and old records reviewed Mode of arrival: ambulatory Limitations: no limitations History of Present Illness HPI narrative: this is a pleasant 38-year-old gentleman who comes to the emergency complaint of left-sided chest, back and abdominal pain. Patient states that his symptoms started about 5:00 a.m. this morning he states he was in bed he over and had pain sort of on the left side of his chest. It also radiated down into his belly and onto both sides. Patient has had chronic issues with his back. He states that typically his back pain better when he is active and he still or moving he is trying to sleep he has difficulty today he states that he was also having some of that back pain as. Patient denies any shortness of, he denies nausea no vomiting no diaphoresis no diarrhea or constipation. He states that this is a little bit different than his typical symptoms. He has not had any cold cough congestion. No fevers. He does have a history hypertension he has finally been able to establish with a primary care they are doing regular blood pressure readings this week and he is following up next week about possibly starting medication. He has also been referred for some further radiology imaging and potentially pain management for his back. Patient otherwise has been healthy he states his dad's probably in 60s, he is unsure but thinks his dad may have had some cardiac issues. He does know he had uncle who young from what they suspected was a sudden cardiac . Patient has had some metal in his jaw. He works a very physical job. Related Data Previous Rx's Medication Instructions Recorded diazepam 2 mg PO BID-TID PRN #10 tab 04/30/18 ibuprofen 800 mg PO TID PRN #20 tab 04/30/18 meloxicam 15 mg PO DAILY PRN #30 tab 05/01/18 cyclobenzaprine 10 mg PO TID PRN #30 tab 05/15/18 Allergies Allergy/AdvReac Type Severity Reaction Status Date / Time codeine [CODEINE] Allergy Intermediate ITCH Verified 06/13/18 08:53 tramadol [TRAMADOL] Allergy Mild ITCH Verified 06/13/18 08:53 Review of Systems Review of Systems ROS Unobtainable: All systems reviewed & are unremarkable except as noted in HPI and below Constitutional Denies chills, Denies fever(s), Denies lethargy and Denies weakness Cardiovascular Reports chest pain, Reports chest pain at rest, Denies chest pain with activity, Denies diaphoresis, Denies syncope, Denies rapid heart rate, Denies edema, Denies irregular heart rhythm, Denies lightheadedness, Denies palpitations, Denies dyspnea, Denies dyspnea on exertion and Denies orthopnea Respiratory Denies change in phlegm color, Denies chest congestion, Denies cough, Reports pain on inspiration, Denies pain with cough, Denies dyspnea, Denies dyspnea on exertion and Denies wheezing Gastrointestinal Gastrointestinal: Denies abdominal pain, Denies change in bowel habits, Denies diarrhea, Denies nausea and Denies vomiting Genitourinary Denies hematuria, Denies flank pain, Denies urinary incontinence and Denies urinary urgency Musculoskeletal Reports back pain, Denies arthralgias, Denies muscle weakness, Denies numbness, Reports stiffness and Denies tingling Integumentary/Breasts Denies rash Neurologic Denies syncope, Denies numbness, Denies tingling and Denies weakness Endocrine Denies palpitations Allergic/Immunologic Denies wheezing [facility] Medical History HTN (hypertension) (Chronic) Sciatica (Chronic) Left hand fracture (Resolved) Surgical History History of eye surgery (Resolved) Social History Smoking Status: Never smoker alcohol intake: never substance use type: marijuana Social History Smoking Status: Never smoker alcohol intake: never substance use type: marijuana Exam Narrative Exam Narrative: GENERAL: Alert and oriented x three, Well-nourished, well- appearing male in no acute distress. HEENT: Head normocephalic, atraumatic, EOMI, pupils reactive, face symmetric, moist mucous membranes NECK: Supple, full range of motion CARDIOVASCULAR: Regular rate and rhythm without murmurs, rubs or gallops. no edema bilateral lower extremities. 2+ pulses bilateral lower extremities. RESPIRATORY: Breath sounds equal bilaterally, no wheezes rales or rhonchi. ABDOMEN: Soft, nontender. Normoactive bowel sounds all 4 quadrants. No guarding or rebound, rigidity, no mass , no bruit or pulsatile mass. : No CVA tenderness BACK: No cervical, thoracic or lumbar vertebral point tenderness. Patient has normal range of motion. NEUROLOGICAL: Cranial nerves II through XII grossly intact. Moving all extremities SKIN: Warm, dry, no petechiae, no rashes or lesions. Initial Vital Signs Initial Vital Signs: Vital Signs Temperature 97.7 F 06/13/18 08:58 Pulse Rate 82 06/13/18 08:58 Respiratory Rate 15 06/13/18 08:58 Blood Pressure 148/106 H 06/13/18 08:58 Pulse Oximetry 98 06/13/18 08:58 Scores HEART Score Heart Score history: Slightly Suspicious Heart Score EKG: Non-Specific repolarization disturbance Heart Score Age: < 45 years old Heart Score risk factors: 1-2 risk factors Heart Score troponin: < or = to normal limit Heart Score Total: 2 Course Orders Ordered: ED Orders 06/13/18 08:53 EKG-12 Lead Stat 06/13/18 09:13 XR chest 1V Stat 06/13/18 09:45 Complete Blood Count AUTO DIFF Stat Comprehensive Metabolic Panel Stat Lipase Stat Troponin & CK Cardiac Panel Stat 06/13/18 11:30 Urine Microscopic Stat Discontinued Medications Aspirin (Aspirin Chew) 324 mg PO NOW ONE Stop: 06/13/18 09:14 Last Admin: 06/13/18 10:03 Dose: 324 mg Sodium Chloride (Normal Saline 0.9%) 1,000 mls @ 150 mls/hr IV CONT MULU Last Infusion: 06/13/18 11:48 Dose: 0 mls/hr Infusion: 06/13/18 11:48 Dose: 0 mls/hr Admin: 06/13/18 10:03 Dose: 150 mls/hr Vital Signs - 8 hr 06/13/18 10:00 06/13/18 10:30 06/13/18 11:00 Pulse Rate 88 80 86 Respiratory Rate 16 16 17 Blood Pressure [Right Arm] 146/115 H 153/119 H 158/128 H Pulse Oximetry 97 99 99 06/13/18 11:33 Pulse Rate 88 Respiratory Rate 18 Blood Pressure [Right Arm] 151/112 H Pulse Oximetry 98 MDM - Chest Pain Lab Data Attestation: I reviewed the patient's lab results. Result diagrams: 06/13/18 09:45 06/13/18 09:45 Lab Results 06/13/18 06/13/18 06/13/18 Range/Units 09:45 09:45 11:30 WBC 7.0 (4.5-11.0) X10^3/uL RBC 5.23 (4.5-5.9) X10^6/uL Hgb 13.9 (13.5-17.5) g/dL Hct 42.8 (41-53) % MCV 81.8 (80-100) fL MCH 26.6 (26-34) PG MCHC 32.5 (30-36) % RDW 13.5 (11.6-14.8) % Plt Count 327 (150-400) X10^3/uL Neut % (Auto) 48.1 L (50-75) % Lymph % (Auto) 29.7 (25-40) % Dolores % (Auto) 14.3 H (3-14) % Eos % (Auto) 6.5 H (2-4) % Baso % (Auto) 1.4 (0-2) % Neut # (Auto) 3400 (6779-2259) /uL Lymph # (Auto) 2100 (5214-8645) /uL Dolores # (Auto) 1000 H (0-900) /uL Eos # (Auto) 500 H (0-450) /uL Baso # (Auto) 100 (0-100) /uL Sodium 141 (137-145) mmol/L Potassium 4.2 (3.4-5.1) mmol/L Chloride 106 (98-107) mmol/L Carbon Dioxide 28 (22-32) mmol/L BUN 11 (9-20) mg/dL Creatinine 0.90 (0.66-1.25) mg/dL Estimated GFR > 60.0 (>60) mL/min BUN/Creatinine Ratio 12.2 (6-22) Glucose 90 (70-100) mg/dL Calcium 9.5 (8.4-10.2) mg/dL Total Bilirubin 0.3 (0.2-1.3) mg/dL AST 23 (17-59) IU/L ALT 29 (21-72) IU/L Alkaline Phosphatase 67 (38-126) U/L Total Creatine Kinase 103 (55-170) U/L CK-MB (CK-2) 0.63 (<2.37) ng/mL CK-MB (CK-2) Rel Index 0.6 L (1.5-5.0) % Troponin I < 0.012 (0.01-0.034) ng/mL Total Protein 8.4 H (6.3-8.2) g/dL Albumin 4.3 (3.5-5.0) g/dL Globulin 4.1 (1.7-4.1) g/dL Albumin/Globulin Ratio 1.0 (1.0-2.8) Lipase 41 (23-300) U/L Urine RBC 0-1/hpf (0-5/HPF) Urine WBC 0-1/hpf (0-5/HPF) Urine Bacteria Few (2-10) H (None) Ur Culture Indicated? Cult not indicated Urine Dip Bedside Urine Glucose Negative Bedside Urine Bilirubin - Negative Bedside Urine Ketone - Negative Urine Specific [place] 1.025 Bedside Urine Occult Blood + Bedside Urine pH 5.5 Bedside Urine Protein - Negative Bedside Urine Urobilinogen - Negative Bedside Urine Nitrite - Negative Bedside Urine Leukocytes - Negative Esterase Imaging Data Chest x-ray: Radiologist's impression: [place] [address] XRay Report Signed Patient: Hi CuetoMR#: [id number] : 1980Acct:[id number] Age/Sex: 38 / MDate of Service: 06/13/18 Loc: ED Accession Number: [id number] Procedure: XR chest 1V Ordering Provider: Dee Hernandez D.O. PROCEDURE: XR CHEST 1V INDICATIONS: chest pain TECHNIQUE: One view of the chest was acquired. COMPARISON: None. FINDINGS: Surgical changes and devices: None. Lungs and pleura: Lungs are clear. No pleural effusions or pneumothorax. Mediastinum: Mediastinal contours appear normal. Heart size is normal. Bones and chest wall: No suspicious bony lesions. Overlying soft tissues appear unremarkable. IMPRESSION: No acute cardiopulmonary disease process. Dictated by: Imani Paris MD, PhD on 06/13/2018 at 9:25 Approved by: Imani Paris MD, PhD on 06/13/2018 at 9:25 ECG Data Attestation: I personally reviewed and interpreted this ECG as follows: Prior ECG tracings: available for review Interpretation: Sinus rhythm with a rate 81 P are 195 [place] [address] elevation appreciated. Patient has Q-waves in 2 3 and AVF with a little bit of ST depression in 3. Patient's EKG appears similar from 03/05/2011 MDM Narrative Medical decision making narrative: Patient's EKG lab work and imaging or ev aluated. Patient's does not have an elevation in his troponin. By patient's history my suspicion for cardiac cause is much lower patient does have some risk factors. He likely has hypertension and has been started on medication soon. He has a possible family history although he was a little unclear about his history as he has not been in contact with his father for many years. Patient states pain is worse at this time with movement but typically is better when he is not moving. He is asymptomatic at this time. Discharge Plan Departure Patient Disposition: Home Clinical Impression: Atypical chest pain Discharge Date/Time: 06/13/18 12:13 Interventions: ED Discharge Assessment Last Done: 06/13/18 12:13 Instructions: DI for Atypical Chest Pain Activity Restrictions/Additional Instructions: Follow-up with Dr. cruz at your scheduled appointment next week. Continue your home medications as prescribed. Return to the emergency department for new or worsening chest pain, new shortness of breath, diaphoresis or being very sweaty, persistent nausea or vomiting, passing out or other new or concerning symptoms. Prescriptions: No Action meloxicam 15 mg tablet 15 mg PO DAILY PRN (Reason: pain, severe) Qty: 30 RF: 0 cyclobenzaprine 10 mg tablet 10 mg PO TID PRN (Reason: muscle spasm) Qty: 30 RF: 0 diazepam 2 mg tablet 2 mg PO BID-TID PRN (Reason: muscle spasm) Qty: 10 RF: 0 ibuprofen 800 mg tablet 800 mg PO TID PRN (Reason: pain) Qty: 20 RF: 0 Referrals: Edvin Cruz MD [Primary Care Provider] -
[2018-06-13 11:52] LABS: Bacteria Urine Few (2-10); Culture Indicated Urine Cult Not Indicated; RBC Urine 0-1/HPF (0-5/HPF); WBC Urine 0-1/HPF (0-5/HPF)
--- NOTE | 2018-06-13 12:13 | PC.NURSE ---
left ac iv hl , started by nursing chris villegas along with tai instructors.
== END 2018-06-13 12:13 | disposition home or self-care (01) ==
PROVIDERS: Emergency Provider Emergency Medicine; PCP Internal Medicine
DX: R07.89 Other chest pain (principal)
CPT/HCPCS: 71045; 80053; 81003; 81015; 82550; 82553; 83690; 84484; 85025; 93005; 93010; 96360; 96361; 99284; 99285

== ENCOUNTER 2018-08-07 12:35 | Emergency (ER) | payer OTHER, MEDICAID, SELFPAY ==
[2018-08-07 12:42] VITALS: BP 160/115; PULSE 67; RESP 14; TEMP 36.4; O2SAT 100; BMI 29.2
--- NOTE | 2018-08-07 13:08 | ED_ITS ---
HPI - Dental/Oral General Chief complaint: Dental/Oral Stated complaint: BROKE TOOTH,ACHING Time Seen by Provider: 08/07/18 12:44 Source: patient Mode of arrival: ambulatory Limitations: no limitations History of Present Illness HPI Narrative: Patient is a 38-year-old male who presents with dental pain 20. 1. He states he was eating a peach when the pit was closer to the surface than he thought he bit right into it and broke his tooth. He is sensitive to cold or makes it feel better. He thought he had some mild swelling of his face. No fevers. He has been taking Tylenol and ibuprofen as needed for pain Duration: constant Related Data Previous Rx's Medication Instructions Recorded diazepam 2 mg PO BID-TID PRN #10 tab 04/30/18 ibuprofen 800 mg PO TID PRN #20 tab 04/30/18 meloxicam 15 mg PO DAILY PRN #30 tab 05/01/18 cyclobenzaprine 10 mg PO TID PRN #30 tab 05/15/18 amoxicillin 500 mg PO BID 7 Days #14 cap 08/07/18 tramadol 50 mg PO Q12H PRN #10 tab 08/07/18 Allergies Allergy/AdvReac Type Severity Reaction Status Date / Time codeine [CODEINE] Allergy Intermediate ITCH Verified 08/07/18 12:44 tramadol [TRAMADOL] Allergy Mild ITCH Verified 08/07/18 12:44 Review of Systems Review of Systems GENERAL: Denies chills,fever HEENT: Dental pain RESPIRATORY: Denies dyspnea, cough, wheezing CARDIOVASCULAR: Denies chest pain, palpitations GASTROINTESTINAL: Denies nausea, vomiting MUSCULOSKELETAL: Denies extremity pain, injury SKIN: No rash, no laceration, no pruritus NEUROLOGIC: Denies weakness, dizziness, headache, numbness 8 point review of systems is negative except for those stated above and HPI PFSH Medical History HTN (hypertension) (Chronic) Sciatica (Chronic) Left hand fracture (Resolved) Surgical History History of eye surgery (Resolved) Social History Smoking Status: Never smoker alcohol intake: never substance use type: marijuana Social History Smoking Status: Never smoker alcohol intake: never substance use type: marijuana Exam Initial Vital Signs Initial Vital Signs: Vital Signs Temperature 97.5 F L 08/07/18 12:42 Pulse Rate 67 08/07/18 12:42 Respiratory Rate 14 08/07/18 12:42 Blood Pressure 160/115 H 08/07/18 12:42 Pulse Oximetry 100 08/07/18 12:42 GENERAL: Well-appearing, well-nourished and in no acute distress. CARDIOVASCULAR: peripheral pulses in tact, cap refill <2 sec RESPIRATORY: No respiratory distress, speaks in full sentences without difficulty EXTREMITIES: Normal range of motion, no clubbing or edema. Neurovascularly intact NEUROLOGICAL: Cranial nerves II through XII grossly intact. Normal gait and speech. SKIN: Warm, dry, no petechiae, no rashes or lesions. HENMT Adult Head Mouth: 1. Broken tooth no abscess. Procedures [facility] Procedure Side (if applicable): left Location: Lower tooth number 21 Technique/Description of procedure performed: Dental block, injection around affected tooth, Marcaine with epinephrine use good anesthesia achieved. Course Vital Signs - 8 hr 08/07/18 12:42 08/07/18 13:20 Temperature 97.5 F L Pulse Rate 67 Respiratory Rate 14 Blood Pressure 160/115 H 157/113 H Pulse Oximetry 100 MDM - Dental/Oral MDM Narrative Medical decision making narrative: The patient actually did not get much relief from dental block. He did not want any more injections. I recommended Tylenol and ibuprofen which she has been taking. I did give him a small dose of tramadol for severe pain he can't get into his dentist until August 19. Also amoxicillin. Discharge Plan Departure Patient Disposition: Home Clinical Impression: Fracture of tooth Qualifiers: Encounter type: initial encounter Fracture type: open Qualified Code(s): S02.5XXB - Fracture of tooth (traumatic), initial encounter for open fracture Discharge Date/Time: 08/07/18 13:21 Interventions: ED Discharge Assessment Last Done: 08/07/18 13:20 Instructions: Tooth Fracture Activity Restrictions/Additional Instructions: *You have been diagnosed with tooth fracture *What to do: Be sure to see her dentist as soon as possible *Continue to take medications as directed amoxacillin 500 mg twice daily for 7 days Tramadol 1 pill every 12 hours for severe pain *Follow up with your primary care provider in 2-3 days *Return to ER if you should have increasing facial swelling, difficulty opening mouth or any new, worsening or concerning symptoms CONTROLLED SUBSTANCE DISCHARGE (Narcotoic/benzodiazepine/Flexeril/Phenergan) 1. You have been prescribed narcotic medications, it does have acetaminophen/Tylenol/paracetamol in it so do not take extra Tylenol or Tylenol containing products TRAMADOL DOES NOT HAVE TYLENOL 2. Please understand that we cannot provide further refills of narcotics, benzodiazepines or controlled substances through the ED and her pain management will need to be through your provider. 3. While on these medications you cannot drive or operate heavy machinery. 4. You cannot sign legal documents or perform any duties such as this. 5. As long as you're taking opiate pain medications he should also be taking a stool softener such as Colace, Dulcolax, MiraLAX or prune juice, to help avoid constipation. Prescriptions: New amoxicillin 500 mg capsule 500 mg PO BID 7 Days Qty: 14 RF: 0 tramadol 50 mg tablet 50 mg PO Q12H PRN (Reason: pain) Qty: 10 RF: 0 No Action meloxicam 15 mg tablet 15 mg PO DAILY PRN (Reason: pain, severe) Qty: 30 RF: 0 cyclobenzaprine 10 mg tablet 10 mg PO TID PRN (Reason: muscle spasm) Qty: 30 RF: 0 diazepam 2 mg tablet 2 mg PO BID-TID PRN (Reason: muscle spasm) Qty: 10 RF: 0 ibuprofen 800 mg tablet 800 mg PO TID PRN (Reason: pain) Qty: 20 RF: 0 Referrals: Edvin Cruz MD [Primary Care Provider] -
[2018-08-07 13:20] VITALS: BP 157/113
== END 2018-08-07 13:21 | disposition home or self-care (01) ==
PROVIDERS: Emergency Provider Emergency Medicine; PCP Internal Medicine
DX: S02.5XXB Fracture of tooth (traumatic), initial encounter for open fracture (principal)
CPT/HCPCS: 99282; 99283

== ENCOUNTER → 2018-08-13 15:02 | Outpatient (CLI) | payer OTHER, MEDICAID, SELFPAY ==
--- NOTE | 2018-08-13 15:05 | DI.RAD.S_ITS ---
PROCEDURE: XR CERVICAL SPINE 4V OR 5V INDICATIONS: neck and back pain TECHNIQUE: 5 views of the cervical spine acquired. COMPARISON: None. FINDINGS: Bones: No fractures or dislocations to the T1 level. Oblique images demonstrate no bony foraminal stenoses. Prior fracture fixations in the mental area anteriorly and mandibular angle area on the left. Soft tissues: No prevertebral soft tissue swelling. IMPRESSION: Only a slight degree of mid cervical degenerative disc disease is seen at C4-5 and C5-6 without subluxation. No definite spinal or foraminal stenosis is found. Dictated by: Julián Singleton M.D. on 08/13/2018 at 15:31 Approved by: Julián Singleton M.D. on 08/13/2018 at 15:32
== END ==
PROVIDERS: PCP Internal Medicine; Visit Provider Physical Medicine & Rehabilitation
DX: M54.2 Cervicalgia (principal); M54.9 Dorsalgia, unspecified; G56.00 Carpal tunnel syndrome, unspecified upper limb; M47.819 Spondylosis without myelopathy or radiculopathy, site unspecified
CPT/HCPCS: 72050

== ENCOUNTER → 2018-08-14 13:00 | Outpatient (CLI) | payer OTHER, MEDICAID, SELFPAY ==
[2018-08-14 13:40] LABS: Add Manual Diff / Slide Review NO; Basophils Absolute Auto 100 /uL (0-100); Basophils Percent Auto 0.9 % (0-2); Eosinophils Absolute Auto 600 /uL (0-450); Eosinophils Percent Auto 8.5 % (2-4); Hematocrit 43.5 % (41-53); Lymphocytes Absolute Auto 2300 /uL (1100-4500); Lymphocytes Percent Auto 34.1 % (25-40); Mean Corpuscular HGB Conc 32.1 % (30-36); Mean Corpuscular Hemoglobin 25.5 PG (26-34); Mean Corpuscular Volume 79.6 fL (80-100); Monocytes Absolute Auto 700 /uL (0-900); Monocytes Percent Auto 10.2 % (3-14); Neutrophils Absolute Auto 3100 /uL (1500-7000); Neutrophils Percent Auto 46.3 % (50-75); Platelet Count 359 X10^3/uL (150-400); Red Blood Cell Count 5.47 X10^6/uL (4.5-5.9); Red Cell Distribution Width 14.2 % (11.6-14.8); White Blood Cell Count 6.7 X10^3/uL (4.5-11.0)
[2018-08-14 13:48] LABS: Alanine Aminotransferase 45 IU/L (21-72); Albumin 4.5 g/dL (3.5-5.0); Albumin Globulin Ratio 1.1 (1.0-2.8); Alkaline Phosphatase 67 U/L (38-126); Aspartate Aminotransferase 31 IU/L (17-59); BUN Creatinine Ratio 13.3 (6-22); Bilirubin Total 0.3 mg/dL (0.2-1.3); Blood Urea Nitrogen 12 mg/dL (9-20); Calcium 9.3 mg/dL (8.4-10.2); Carbon Dioxide 27 mmol/L (22-32); Chloride 105 mmol/L (98-107); Estimated Glomerular Filt Rate > 60.0 mL/min (>60); Globulin 4.1 g/dL (1.7-4.1); Glucose 105 mg/dL (70-100); HEMOLYSIS 22 (0-50); Potassium 4.1 mmol/L (3.4-5.1); Sodium 142 mmol/L (137-145); Total Protein 8.6 g/dL (6.3-8.2)
[2018-08-14 14:03] LABS: C-Reactive Protein Quant < 0.5 mg/dL (<1.0); Rheumatoid Factor < 8.6 IU/mL (<12.0)
[2018-08-14 14:09] LABS: Erythrocyte Sedimentation Rate 25 MM/HR (0-15)
[2018-08-16 15:25] LABS: HLA B27 NEGATIVE (Negative)
[2018-08-17 19:27] LABS: ANA Screen, IFA Negative (Negative)
== END ==
PROVIDERS: PCP Internal Medicine; Visit Provider Physical Medicine & Rehabilitation
DX: D57.3 Sickle-cell trait (principal); G56.00 Carpal tunnel syndrome, unspecified upper limb; M47.819 Spondylosis without myelopathy or radiculopathy, site unspecified
CPT/HCPCS: 36415; 80053; 85025; 85651; 85660; 86038; 86140; 86430; 86812

== ENCOUNTER → 2018-10-22 17:41 | Outpatient (CLI) | payer BC, OTHER, MEDICAID, SELFPAY ==
--- NOTE | 2018-10-22 17:45 | DI.RAD.S_ITS ---
PROCEDURE: XR PELVIS 1-2V INDICATIONS: si joint pain TECHNIQUE: Single view(s) of the pelvis acquired. COMPARISON: None. FINDINGS: Bones: No fractures or dislocations. No suspicious bony lesions. Soft tissues: Visualized bowel gas pattern is normal. No suspicious soft tissue calcifications. IMPRESSION: Unremarkable radiographic examination of bilateral sacroiliac joints. No evidence of ankylosis or erosion. No pelvic fracture or dislocation. Dictated by: Jaydon Cornejo M.D. on 10/23/2018 at 9:58 Approved by: Jaydon Cornejo M.D. on 10/23/2018 at 9:58
== END ==
PROVIDERS: PCP Internal Medicine; Visit Provider Registered Nurse
DX: M53.3 Sacrococcygeal disorders, not elsewhere classified (principal)
CPT/HCPCS: 72170

== ENCOUNTER 2018-11-06 06:22 | Emergency (ER) | payer BC, OTHER, MEDICAID, SELFPAY ==
[2018-11-06 06:29] VITALS: BP 134/86; PULSE 66; RESP 18; TEMP 36.6; O2SAT 97; BMI 29.2
--- NOTE | 2018-11-06 06:35 | ED_ITS ---
HPI - Dental/Oral General Chief complaint: Dental/Oral Stated complaint: LEFT SIDE BROKEN TOOTH, FACE SWELLING Time Seen by Provider: 11/06/18 06:28 Source: patient Mode of arrival: ambulatory Limitations: no limitations History of Present Illness HPI Narrative: Patient is a 38-year-old male who presents with dental pain ongoing for last 2 days. He has a known chipped to. It has been hurting a little bit more. He denies any fevers no trismus no significant facial swelling. He has been taking ibuprofen for it which seems to help however he is wondering he needs antibiotics. Location: Tooth # 1. No dental abscess chipped tooth noted Onset (ago): day(s) (2) Duration: constant Related Data Previous Rx's Medication Instructions Recorded celecoxib 200 mg capsule 200 mg PO DAILY #30 cap 10/15/18 omeprazole 40 mg capsule,delayed 20 mg PO DAILY #30 cap 10/15/18 release trazodone 50 mg tablet 50 mg PO BEDTIME PRN #30 tab MDD 10/25/18 50 mg amoxicillin 500 mg PO BID 7 Days #14 cap 11/06/18 Allergies Allergy/AdvReac Type Severity Reaction Status Date / Time codeine [CODEINE] Allergy Intermediate ITCH Verified 10/23/18 08:45 tramadol [TRAMADOL] Allergy Mild ITCH Verified 10/23/18 08:45 Review of Systems Review of Systems GENERAL: Denies chills,fever HEENT: Dental pain see HPI RESPIRATORY: Denies dyspnea, cough, wheezing CARDIOVASCULAR: Denies chest pain, palpitations GASTROINTESTINAL: Denies nausea, vomiting MUSCULOSKELETAL: Denies extremity pain, injury SKIN: No rash, no laceration, no pruritus NEUROLOGIC: Denies weakness, dizziness, headache, numbness 8 point review of systems is negative except for those stated above and HPI PFSH Medical History HTN (hypertension) (Chronic) Sciatica (Chronic) Left hand fracture (Resolved) Surgical History History of eye surgery (Resolved) Family History Mother Sickle cell anemia Back pain Social History Smoking Status: Never smoker alcohol intake: never substance use type: marijuana Family History Mother Sickle cell anemia Back pain Social History Smoking Status: Never smoker alcohol intake: never substance use type: marijuana Exam Initial Vital Signs Initial Vital Signs: Vital Signs Temperature 97.8 F 11/06/18 06:29 Pulse Rate 66 11/06/18 06:29 Respiratory Rate 18 11/06/18 06:29 Blood Pressure 134/86 11/06/18 06:29 Pulse Oximetry 97 11/06/18 06:29 GENERAL: Well-appearing, well-nourished and in no acute distress. MOUTH: see dental diagram tooth # 20. no dental swelling or abscess. chipped tooth CARDIOVASCULAR: peripheral pulses in tact, cap refill <2 sec RESPIRATORY: No respiratory distress, speaks in full sentences without difficulty EXTREMITIES: Normal range of motion, no clubbing or edema. Neurovascularly intact NEUROLOGICAL: Cranial nerves II through XII grossly intact. Normal gait and speech. SKIN: Warm, dry, no petechiae, no rashes or lesions. Course Vital Signs - 8 hr 11/06/18 06:29 Temperature 97.8 F Pulse Rate 66 Respiratory Rate 18 Blood Pressure 134/86 Pulse Oximetry 97 Discharge Plan Departure Patient Disposition: Home Clinical Impression: Pain, dental Instructions: DI for Dental Pain Activity Restrictions/Additional Instructions: *You have been diagnosed with dental pain *What to do: You need to see a dentist to for removal of tooth *Continue to take medications as directed Amoxacillin 500 mg twice a day for 7days-->[facility] [place] *Follow up with your primary care provider in 2-3 days *Return to ER if you should have facial swelling inability to open mouth, increased pain or any new, worsening or concerning symptoms Prescriptions: New amoxicillin 500 mg capsule 500 mg PO BID 7 Days Qty: 14 RF: 0 No Action trazodone 50 mg tablet 50 mg PO BEDTIME MDD 50 mg PRN (Reason: insomnia) Qty: 30 RF: 0 celecoxib [Celebrex] 200 mg capsule 200 mg PO DAILY Qty: 30 RF: 1 omeprazole 40 mg capsule,delayed release(DR/EC) 20 mg PO DAILY Qty: 30 RF: 1 Referrals: Edvin Cruz MD [Primary Care Provider] -
== END 2018-11-06 06:41 | disposition home or self-care (01) ==
PROVIDERS: Emergency Provider Emergency Medicine; PCP Internal Medicine
DX: K08.89 Other specified disorders of teeth and supporting structures (principal)
CPT/HCPCS: 99282; 99283

== ENCOUNTER 2019-04-05 14:57 | Emergency (ER) | payer OTHER, MEDICAID, SELFPAY ==
--- NOTE | 2019-04-05 15:24 | PC.NURSE ---
called patient at 1518 and pt was not in lobby
[2019-04-05 15:34] VITALS: BP 161/106; PULSE 75; RESP 18; TEMP 37.1; O2SAT 99; BMI 28.8
--- NOTE | 2019-04-05 16:38 | ED_ITS ---
HPI - Dental/Oral General Chief complaint: Dental/Oral Stated complaint: oral/tooth pain from cracked tooth Time Seen by Provider: 04/05/19 16:17 Source: patient Mode of arrival: EMS Limitations: no limitations History of Present Illness HPI Narrative: This is a 39-year-old male comes emergency department with complaint of dental pain. Patient states he fractured a tooth recently. He saw Dr. figueroa office who gave him prescription for Vicodin a as well as amoxicillin. He states he has been able to keep the amoxicillin down but when takes the Vicodin makes him vomit. He has taken 2 doses and vomited each time shortly thereafter. No fevers. He has some swelling right at the tooth no generalized facial swelling. No difficulty with speech. He states quite uncomfortable. He has an appointment with the dentist on the . He did try to recontact Dr. figueroa who told him to return if he was having issues but the office is closed today. Patient has not had any muffled voice, no vomiting at other episodes or intervals. Related Data Previous Rx's Medication Instructions Recorded celecoxib 200 mg capsule 200 mg PO DAILY #30 cap 10/15/18 omeprazole 40 mg capsule,delayed 20 mg PO DAILY #30 cap 10/15/18 release trazodone 50 mg tablet 50 mg PO BEDTIME PRN #30 tab MDD 10/25/18 50 mg meloxicam [Mobic] 7.5 mg PO BID #20 tab 04/05/19 Allergies Allergy/AdvReac Type Severity Reaction Status Date / Time tramadol [TRAMADOL] Allergy Mild ITCH Verified 04/05/19 15:40 Review of Systems Review of Systems ROS Unobtainable: All systems reviewed & are unremarkable except as noted in HPI and below Patient History Medical History HTN (hypertension) (Chronic) Left hand fracture (Resolved) Sciatica (Chronic) Surgical History History of eye surgery (Resolved) Social History Smoking Status: Never smoker alcohol intake: never substance use type: marijuana Smoking Status: Never smoker alcohol intake frequency: 0-2 drinks per day Substance Use Type: marijuana Exam Narrative Exam Narrative: GEN: well nourished, well appearing male, alert and oriented x 3, patient appears to be in mild distress. HEENT: Atraumatic, pupils are equal round reactive to light, extraocular movements are intact, nares are clear, TMs are clear with no fluid, there is no conjunctival pallor. Throat is clear without any exudates, erythema, tonsillar enlargement or uvular deviation, patient does have a fractured tooth #6. Patient has some mild swelling just anterior to the tooth not fluctuant. Patient does not have any facial swelling. Normal speech no muffled voice. No difficulty swallowing secretions. LUNGS:Lungs clear to auscultation, no wheezes, rales, crackles, chest moves symmetrically ABD:bowel sounds normal, soft, non-tender, no guarding, rebound, rigidity, no masses noted, no hepatosplenomegaly MSCL: Non-tender, full range of motion, normal gait NEURO:CN 2-12 intact, sensation normal SKIN: No rash, no erythema, no fluctuant areas. Initial Vital Signs Initial Vital Signs: Vital Signs Temperature 98.8 F 04/05/19 15:34 Pulse Rate 75 04/05/19 15:34 Respiratory Rate 18 04/05/19 15:34 Blood Pressure 161/106 H 04/05/19 15:34 Pulse Oximetry 99 04/05/19 15:34 Course Orders Ordered: Discontinued Medications Ketorolac Tromethamine (Toradol) 30 mg IM NOW ONE Stop: 04/05/19 17:04 Last Admin: 04/05/19 17:16 Dose: 30 mg Documented by: LY Vital Signs Vital signs: Vital Signs - 8 hr 04/05/19 15:34 04/05/19 17:20 Temperature 98.8 F 98.7 F Pulse Rate 75 72 Respiratory Rate 18 18 Blood Pressure 161/106 H 152/88 H Pulse Oximetry 99 98 MDM - Dental/Oral MDM Narrative Medical decision making narrative: [place] prescription database does show patient felt 20 hydrocodone on the [address] figueroa. He has had tramadol and diazepam remotely in July and April but no other medication refi lls. Discussed with patient he can try Zofran 20 minutes before it Vicodin as this may be tolerated better. He states he has had tramadol in the past and it made him itch. Patient was given a prescription for Mobic which he states he has had in the past. He can also do Tylenol with this if he is tolerating it. As well as Orajel as needed. We did discuss reasons to return emergently he feels comfortable with this plan. Discharge Plan Departure Patient Disposition: Home Clinical Impression: Pain, dental, Fracture, tooth Discharge Date/Time: 04/05/19 17:20 Instructions: Tooth Fracture Activity Restrictions/Additional Instructions: Follow-up with your dentist at your appointment on the . Continue amoxicillin as prescribed. You may take Zofran 1 tablet every 6 hours as needed. You may take this 20 minutes prior to Vicodin if you find it helpful. If you prefer you may take Mobic 1 tablet twice daily as needed for pain. You may your use Orajel topically to the affected area 4 times daily. Return to the ER for fevers greater 100.4 F, rapidly worsening swelling, swelling of the tongue, airway, wheezing, muffled voice, new redness or other skin changes. Prescriptions: New meloxicam [Mobic] 7.5 mg tablet 7.5 mg PO BID Qty: 20 RF: 0 No Action trazodone 50 mg tablet 50 mg PO BEDTIME MDD 50 mg PRN (Reason: insomnia) Qty: 30 RF: 0 celecoxib [Celebrex] 200 mg capsule 200 mg PO DAILY Qty: 30 RF: 1 omeprazole 40 mg capsule,delayed release(DR/EC) 20 mg PO DAILY Qty: 30 RF: 1 Referrals: Edvin Figueroa MD [Primary Care Provider] -
[2019-04-05] MEDS: KETOROLAC 60 MG/2 ML VIAL 30 MG IM (17:16)
[2019-04-05 17:20] VITALS: BP 152/88; PULSE 72; RESP 18; TEMP 37.1; O2SAT 98
== END 2019-04-05 17:20 | disposition home or self-care (01) ==
PROVIDERS: Emergency Provider Emergency Medicine; PCP Internal Medicine
DX: S02.5XXA Fracture of tooth (traumatic), initial encounter for closed fracture (principal)
CPT/HCPCS: 96372; 99281; 99283; J1885

== ENCOUNTER 2020-06-09 00:16 | Emergency (ER) | payer SELFPAY ==
[2020-06-09 00:27] VITALS: BP 193/123; PULSE 92; RESP 20; TEMP 36.8; O2SAT 97; BMI 29.0
[2020-06-09] MEDS: BUPIVACAINE 0.5% W/ EPI (PF) 30 ML VIAL 5 ML SUBCUT (00:32)
[2020-06-09] MEDS: AMOXICILLIN/CLAV 875/125 MG 1 TAB PO (00:33)
[2020-06-09 00:37] VITALS: BP 175/107
--- NOTE | 2020-06-09 00:42 | ED_ITS ---
HPI - Dental/Oral General Chief complaint: Dental/Oral Stated complaint: upper left tooth problem, pain infection Time Seen by Provider: 06/09/20 00:19 Source: patient Mode of arrival: Ambulatory Limitations: no limitations History of Present Illness HPI Narrative: 40M nonsmoker with history prior dental issues presents with the chief complaint of gradually worsening right upper tooth pain. He denies any injury nor fever or chills. He states that he has been having increasing pain along with some facial swelling for the past day or 2. His pain is worse with chewing and drinking. He denies any difficulty breathing or swallowing. His last episode of treatment for a dental abscess was about a year ago. He has been trying to get in with his dentist but has been having issues with insurance. He has had no injury or trauma MD Complaint: tooth pain Location: Tooth # Teeth map: 1. Onset (ago): day(s) Duration: constant Severity: moderate Relieving factors: nothing Exacerbating factors: chewing, cold, heat and drinking fluids Context: history of dental caries Associated symptoms: other Treatment prior to arrival: none Related Data Previous Rx's Medication Instructions Recorded celecoxib 200 mg capsule 200 mg PO DAILY #30 cap 10/15/18 omeprazole 40 mg capsule,delayed 20 mg PO DAILY #30 cap 10/15/18 release trazodone 50 mg tablet 50 mg PO BEDTIME PRN #30 tab MDD 10/25/18 50 mg meloxicam [Mobic] 7.5 mg PO BID #20 tab 04/05/19 amoxicillin-pot clavulanate 1 tab PO BID #20 tab 06/09/20 [Augmentin] Allergies Allergy/AdvReac Type Severity Reaction Status Date / Time tramadol [TRAMADOL] Allergy Mild ITCH Verified 04/05/19 15:40 Review of Systems Constitutional Constitutional: Denies chills, Denies fatigue, Denies fever(s), Denies frequent falls, Denies lethargy and Denies weakness Eyes Eyes: Denies change in vision, Denies eye discharge, Denies irritation and Denies loss of vision ENT Ears, Nose, Mouth, and Throat: Denies change in voice, Reports dental pain, Denies dizziness, Reports facial pain, Denies neck pain, Denies sore throat and Denies throat swelling Cardiovascular Cardiovascular: Denies chest pain, Denies irregular heart rhythm, Denies lightheadedness, Denies palpitations, Denies dyspnea, Denies dyspnea on exertion and Denies orthopnea Respiratory Respiratory: Denies cough, Denies dyspnea, Denies dyspnea on exertion and Denies wheezing Gastrointestinal Gastrointestinal: Denies abdominal pain, Denies change in bowel habits, Denies diarrhea, Denies nausea and Denies vomiting Musculoskeletal Musculoskeletal: Denies neck pain and Denies numbness Integumentary/Breasts Skin/Breast: Denies pruritus, Denies erythema, Denies rash and Denies wounds Neurologic Neurologic: Denies behavioral changes, Denies confusion, Denies dizziness, Denies frequent falls, Denies loss of vision, Denies numbness and Denies weakness Psychiatric Psychiatric: Denies anxiety, Denies behavioral changes, Denies confusion, Denies depression, Denies homicidal ideation and Denies suicidal ideation Endocrine Endocrine: Denies fatigue, Denies flushing and Denies palpitations Hematologic/Lymphatic Hematologic/Lymphatic: Denies easy bruising Allergic/Immunologic Allergic/Immunologic: Denies urticaria, Denies throat swelling and Denies wheezing Patient History Medical History HTN (hypertension) Left hand fracture Sciatica Surgical History History of eye surgery Family History Mother Sickle cell anemia Back pain Social History Smoking Status: Never smoker alcohol intake: never substance use type: marijuana Smoking Status: Never smoker alcohol intake frequency: 0-2 drinks per day Substance Use Type: marijuana Exam Narrative Exam Narrative: GEN: AOx3 and in mild distress EYES: Pupils are equal, round, and reactive to light and accommodation. Extraoccular muscles are intact bilaterally. There is no subconjunctival hemorrhage or exudate. ENT: Mild R maxillary swelling without erythema or fluctuance. AIrway patent. No intraoral fluctuance. Poor dentition widespread. Most tender superior to tooth #6 CHEST: Lungs are clear to auscultation bilaterally and free of wheezes, rales, or rhonchi. Heart rate is regular rhythm, there are no murmurs, clicks, rubs, or gallops. There is no chest wall tenderness. ABD: Abdomen is soft and nontender. There is no guarding or rebound. Bowel sounds are normal in all 4 quadrants. There is no mass or organomegaly. EXT: Full painless ROM of all extremities with no loss of sensation or strength. SKIN: Warm, pink, and dry. No erythema or rash Initial Vital Signs Initial Vital Signs: Vital Signs Temperature 98.2 F 06/09/20 00:27 Pulse Rate 92 H 06/09/20 00:27 Respiratory Rate 20 06/09/20 00:27 Blood Pressure 193/123 H 06/09/20 00:27 Pulse Oximetry 97 06/09/20 00:27 Procedures Nerve Block Nerve Block 1: Time out performed: Yes Local Anesthetic: bupivacaine 0.5% and with epi Amount of anesthesia used (mL): 4 Side: right Intraoral Nerve Block: superior alveolar Procedure Successful: Yes Patient Tolerated Procedure: Well Complications: none Course Orders Ordered: Discontinued Medications Amoxicillin/Clavulanate Potassium (Amoxicillin/Clav 875/125 Mg) 1 tab PO NOW ONE Stop: 06/09/20 00:27 Last Admin: 06/09/20 00:33 Dose: 1 tab Documented by: LUTHER Bupivacaine HCl/Epinephrine Bitart (Bupivacaine 0.5% W/ Epi (Pf) 30 Ml Vial) 5 ml SUBCUT NOW ONE Stop: 06/09/20 00:27 Last Admin: 06/09/20 00:32 Dose: 5 ml Documented by: LUTHER Vital Signs Vital signs: Vital Signs - 8 hr 06/09/20 00:27 06/09/20 00:37 Temperature 98.2 F Pulse Rate 92 H Respiratory Rate 20 Blood Pressure 193/123 H 175/107 H Pulse Oximetry 97 Discharge Plan Departure Patient Disposition: Home Clinical Impression: Pain, dental, Dental abscess Instructions: Tooth Abscess Activity Restrictions/Additional Instructions: *You have been diagnosed with [dental pain and probable small, early abscess] *What to do: *Take medications as directed: [facility] *Follow up with your dentist in 2-3 days, call for an appointment. Let them know you were seen in the Emergency Department and that we ask that you be seen in follow up *Return to ER if you should have any new, worsening or concerning symptoms, such as [increasing swelling, fever greater than 101 F, shaking chills or other bothersome symptoms] Prescriptions: New amoxicillin-pot clavulanate [Augmentin] 875-125 mg tablet 1 tab PO BID Qty: 20 RF: 0 No Action meloxicam [Mobic] 7.5 mg tablet 7.5 mg PO BID Qty: 20 RF: 0 trazodone 50 mg tablet 50 mg PO BEDTIME MDD 50 mg PRN (Reason: insomnia) Qty: 30 RF: 0 celecoxib [Celebrex] 200 mg capsule 200 mg PO DAILY Qty: 30 RF: 1 omeprazole 40 mg capsule,delayed release(DR/EC) 20 mg PO DAILY Qty: 30 RF: 1 Referrals: Edvin Cruz MD [Primary Care Provider] -
== END 2020-06-09 00:43 | disposition home or self-care (01) ==
PROVIDERS: Emergency Provider Emergency Medicine; PCP Internal Medicine
DX: K04.7 Periapical abscess without sinus (principal); K08.89 Other specified disorders of teeth and supporting structures
CPT/HCPCS: 64450; 99281; 99283

== ENCOUNTER 2022-01-15 13:03 | Emergency (ER) | payer OTHER, SELFPAY ==
[2022-01-15] VITALS (13 sets, daily range): BP systolic 156–175; BP diastolic 101–124; PULSE 67–110; RESP 18–26; TEMP 36.2; O2SAT 97–99; BMI 28.3
--- NOTE | 2022-01-15 13:38 | DI.RAD.S_ITS ---
PROCEDURE: XR CHEST 1V INDICATIONS: chest pain TECHNIQUE: One view of the chest was acquired. COMPARISON: [facility], CR, XR CHEST 1V, 06/13/2018, 9:17. FINDINGS: Surgical changes and devices: None. Lungs and pleura: Lungs are clear. No pleural effusions or pneumothorax. Mediastinum: Mediastinal contours appear normal. Heart size is normal. Bones and chest wall: No suspicious bony lesions. Overlying soft tissues appear unremarkable. IMPRESSION: No acute cardiopulmonary process demonstrated radiographically. Dictated by: Nahum Urias M.D. on 01/15/2022 at 13:58 Approved by: Nahum Urias M.D. on 01/15/2022 at 13:59
--- NOTE | 2022-01-15 14:36 | PC.NURSE ---
called pt name 3 x no answer, called pt to bring back to procedural area to place iv draw labs and obtain ekg
[2022-01-15 15:30] LABS: Add Manual Diff / Slide Review NO; Basophils Absolute Auto 100 /uL (0-100); Basophils Percent Auto 0.7 % (0-2); Eosinophils Absolute Auto 400 /uL (0-450); Eosinophils Percent Auto 3.9 % (2-4); Hematocrit 44.3 % (41-53); Hemoglobin 14.5 g/dL (13.5-17.5); Lymphocytes Absolute Auto 1800 /uL (1100-4500); Lymphocytes Percent Auto 18.6 % (25-40); Mean Corpuscular HGB Conc 32.7 % (30-36); Mean Corpuscular Hemoglobin 25.9 PG (26-34); Monocytes Absolute Auto 1800 /uL (0-900); Monocytes Percent Auto 18.5 % (3-14); Neutrophils Absolute Auto 5700 /uL (1500-7000); Neutrophils Percent Auto 58.3 % (50-75); Platelet Count 396 X10^3/uL (150-400); Red Blood Cell Count 5.61 X10^6/uL (4.5-5.9); Red Cell Distribution Width 13.8 % (11.6-14.8); White Blood Cell Count 9.8 X10^3/uL (4.5-11.0)
[2022-01-15 15:41] LABS: Alanine Aminotransferase 17 IU/L (<50); Albumin 4.6 g/dL (3.5-5.0); Albumin Globulin Ratio 0.9 (1.0-2.8); Alkaline Phosphatase 105 U/L (38-126); Aspartate Aminotransferase 27 IU/L (17-59); Bilirubin Total 0.5 mg/dL (0.2-1.3); Blood Urea Nitrogen 7 mg/dL (9-20); Calcium 9.5 mg/dL (8.4-10.2); Carbon Dioxide 28 mmol/L (22-32); Chloride 98 mmol/L (98-107); Creatine Kinase 71 U/L (55-170); Estimated Glomerular Filt Rate > 60 mL/min (>60); Glucose 95 mg/dL (70-100); HEMOLYSIS < 15 (0-50); Lipase 24 U/L (23-300); Magnesium 1.7 mg/dL (1.6-2.3); Potassium 3.6 mmol/L (3.4-5.1); Sodium 139 mmol/L (137-145); Total Protein 9.6 g/dL (6.3-8.2)
[2022-01-15 15:52] LABS: Troponin I < 0.012 ng/mL (0.01-0.034)
--- NOTE | 2022-01-15 17:38 | ED.CHESTPAIN ---
HPI - Chest Pain <Nigel Marquez PA-C - Last Filed: 01/15/22 20:19> General Chief Complaint: Chest Pain Stated Complaint: blood in stool, chest is tight, infected tooth Time Seen by Provider: 01/15/22 16:31 Source: patient Mode of arrival: Ambulatory History of Present Illness HPI narrative: Patient is a 41-year-old male who presents to the emergency room today with complaint of chest tightness and associated stomach burning with nausea and vomiting since Monday of last week. Patient states the chest tightness type has been periodic with the burning has been constant. Describes a tightness is being in the center of his chest and that it does not radiate. Also does not like the tightness any activity. But states the tightness is worse with certain positions. Denies any trauma to the chest. In regards to the burning he states that the burning in the mid epigastric area and that it is constant and worsening as the days go by. Also relates blood in his stool to the abdominal pain. States he has the blood in every bowel movement that he is had since last Monday all the way up until his last bowel movement earlier today. States the blood is dark maroon in color. States that he had similar chest tightness about a year ago and was seen in the emergency room for it and that resolved but now is worse. Denies a history of acid reflux disease denies history of heart disease or cardiac related concerns. States that he is taken Tylenol and ibuprofen do not help with the pain. Denies any other concerns. Related Data Previous Rx's Medication Instructions Recorded celecoxib 200 mg capsule (Celebrex) 200 mg PO DAILY #30 caps 10/15/18 omeprazole 40 mg capsule,delayed 20 mg PO DAILY stomach pain #30 10/15/18 release caps trazodone 50 mg tablet 50 mg PO BEDTIME PRN insomnia #30 10/25/18 tabs meloxicam 7.5 mg tablet (Mobic) 7.5 mg PO BID #20 tabs 04/05/19 amoxicillin 875 mg-potassium 1 tab PO BID #20 tabs 06/09/20 clavulanate 125 mg tablet (Augmentin) omeprazole 40 mg capsule,delayed 40 mg PO BID #20 caps 01/15/22 release ondansetron 4 mg oral soluble film 4 mg PO Q8H PRN nausea and 01/15/22 vomiting #30 ea Allergies Allergy/AdvReac Type Severity Reaction Status Date / Time tramadol [TRAMADOL] Allergy Mild ITCH Verified 04/05/19 15:40 Review of Systems <Nigel Marquez PA-C - Last Filed: 01/15/22 20:19> Review of Systems Narrative: R.O.S.: General: No fever, chills or fatigue. Cardiovascular: Chest tightness Respiratory: No S.O.B. HEENT: No congestion, ear pain, rhinorrhea, sore throat or tinnitus Gastrointestinal: Burning in his epigastric area with bloody stools : No urinary concerns Skin: No rash or associated abnormalities Musculoskeletal: No pain in muscles or joints, no limitation of range of motion, no paresthesia or numbness. ?? Neurological: Awake, alert and in not apparent distress. No Headaches, changes in vision or other related neurological concerns. Patient History <Nigel Marquez PA-C - Last Filed: 01/15/22 20:19> Medical History (Updated 01/15/22 @ 20:05 by Nigel Marquez PA-C) HTN (hypertension) Left hand fracture Sciatica Surgical History History of eye surgery Family History Mother Sickle cell anemia Back pain Social History Smoking Status: Never smoker alcohol intake: never substance use type: marijuana Smoking Status: Never smoker alcohol intake frequency: 0-2 drinks per day Substance Use Type: marijuana Exam <Nigel Marquez PA-C - Last Filed: 01/15/22 20:19> Narrative Exam Narrative: Physical Exam: ? General: normal appearance, well developed, well nourished, alert, and awake. Not in acute distress. ? Head: Normocephalic, no lesions. Chest: Lungs CTAB, no rales, rhonchi or wheezes. ?? Heart: RRR, no murmurs, rubs or gallops. Eyes: PERRLA, EOM's full, conjunctivae clear. ? Neuro: Physiological, no localizing findings, CN3-12 intact. ?? Extremities: Warm, well perfused, FROM, no deformities, no edema. ?? Skin: Normal, no rashes, no lesions noted. ?? PSYCHIATRIC: The mood is good, no blunted affect. Speech is clear. Thought process is linear, thought content is appropriate. The voice is without significant inflection. Gastrointestinal: Soft; mildly tender to palpation throughout the bilateral upper quadrant areas.; ND; Pos BS with Neg. rebound tenderness. No scars or major deformities noted on Visual Inspection. Initial Vital Signs Initial Vital Signs: Vital Signs Temperature 97.2 F L 01/15/22 13:32 Pulse Rate 94 H 01/15/22 13:32 Respiratory Rate 20 01/15/22 13:32 Blood Pressure 168/102 H 01/15/22 13:32 Pulse Oximetry 99 01/15/22 13:32 Oxygen Delivery Method 01/15/22 13:32 <Yinka Mccall DO - Last Filed: 01/15/22 21:47> Initial Vital Signs Initial Vital Signs: Vital Signs Temperature 97.2 F L 01/15/22 13:32 Pulse Rate 94 H 01/15/22 13:32 Respiratory Rate 20 01/15/22 13:32 Blood Pressure 168/102 H 01/15/22 13:32 Pulse Oximetry 99 01/15/22 13:32 Oxygen Delivery Method 01/15/22 13:32 Scores <Nigel Marquez PA-C - Last Filed: 01/15/22 20:19> Nexus Score for C-Spine Citation:: C-spine cleared by the nexus criteria. Course <FABI Robbins Last Filed: 01/15/22 20:19> Orders Ordered: ED Orders 01/15/22 13:38 XR chest 1V Stat 01/15/22 15:10 Complete Blood Count AUTO DIFF Stat Comprehensive Metabolic Panel Stat Lipase Stat Magnesium Stat Troponin & CK Cardiac Panel Stat 01/15/22 15:20 EKG-12 Lead Stat 01/15/22 17:21 Urinalysis and Microscopic Stat 01/15/22 19:17 Troponin & CK Cardiac Panel Stat Discontinued Medications Ondansetron HCl (Ondansetron 4 Mg/2 Ml Inj) 4 mg IV Q2HR PRN PRN Reason: Nausea And Vomiting Last Admin: 01/15/22 19:09 Dose: 4 mg Documented By: KB Vital Signs Vital signs: Vital Signs - 8 hr 01/15/22 15:44 01/15/22 15:45 01/15/22 15:45 Pulse Rate 71 72 Respiratory Rate 18 18 Blood Pressure 175/124 H Pulse Oximetry 01/15/22 16:00 01/15/22 16:00 01/15/22 16:30 Pulse Rate 67 Respiratory Rate 22 Blood Pressure 164/109 H 165/101 H Pulse Oximetry 98 01/15/22 16:30 01/15/22 17:00 01/15/22 17:00 Pulse Rate 76 72 Respiratory Rate 22 23 Blood Pressure 175/101 H Pulse Oximetry 99 97 01/15/22 17:25 01/15/22 17:25 01/15/22 17:30 Pulse Rate 68 Respiratory Rate 20 Blood Pressure 162/114 H 157/106 H Pulse Oximetry 99 01/15/22 17:30 01/15/22 18:00 01/15/22 18:00 Pulse Rate 73 76 Respiratory Rate 21 20 Blood Pressure 161/116 H Pulse Oximetry 99 98 01/15/22 18:30 01/15/22 19:00 01/15/22 19:00 Pulse Rate 110 H 69 Respiratory Rate 18 26 H Blood Pressure 156/104 H Pulse Oximetry 98 98 01/15/22 19:31 01/15/22 20:00 Pulse Rate 73 69 Respiratory Rate Blood Pressure Pulse Oximetry 99 98 <Yinka Mccall DO - Last Filed: 01/15/22 21:47> Orders Ordered: ED Orders 01/15/22 13:38 XR chest 1V Stat 01/15/22 15:10 Complete Blood Count AUTO DIFF Stat Comprehensive Metabolic Panel Stat Lipase Stat Magnesium Stat Troponin & CK Cardiac Panel Stat 01/15/22 15:20 EKG-12 Lead Stat 01/15/22 17:21 Urinalysis and Microscopic Stat 01/15/22 19:17 Troponin & CK Cardiac Panel Stat Discontinued Medications Ondansetron HCl (Ondansetron 4 Mg/2 Ml Inj) 4 mg IV Q2HR PRN PRN Reason: Nausea And Vomiting Last Admin: 01/15/22 19:09 Dose: 4 mg Documented By: COLLIN Vital Signs Vital signs: Vital Signs - 8 hr 01/15/22 15:44 01/15/22 15:45 01/15/22 15:45 Pulse Rate 71 72 Respiratory Rate 18 18 Blood Pressure 175/124 H Pulse Oximetry 01/15/22 16:00 01/15/22 16:00 01/15/22 16:30 Pulse Rate 67 Respiratory Rate 22 Blood Pressure 164/109 H 165/101 H Pulse Oximetry 98 01/15/22 16:30 01/15/22 17:00 01/15/22 17:00 Pulse Rate 76 72 Respiratory Rate 22 23 Blood Pressure 175/101 H Pulse Oximetry 99 97 01/15/22 17:25 01/15/22 17:25 01/15/22 17:30 Pulse Rate 68 Respiratory Rate 20 Blood Pressure 162/114 H 157/106 H Pulse Oximetry 99 01/15/22 17:30 01/15/22 18:00 01/15/22 18:00 Pulse Rate 73 76 Respiratory Rate 21 20 Blood Pressure 161/116 H Pulse Oximetry 99 98 01/15/22 18:30 01/15/22 19:00 01/15/22 19:00 Pulse Rate 110 H 69 Respiratory Rate 18 26 H Blood Pressure 156/104 H Pulse Oximetry 98 98 01/15/22 19:31 01/15/22 20:00 Pulse Rate 73 69 Respiratory Rate Blood Pressure Pulse Oximetry 99 98 MDM - Chest Pain <Nigel Marquez PA-C - Last Filed: 01/15/22 20:19> Lab Data Result diagrams: 01/15/22 15:10 01/15/22 15:10 Labs: Lab Results 01/15/22 01/15/22 01/15/22 Range/Units 15:10 15:10 17:21 WBC 9.8 (4.5-11.0) X10^3/uL RBC 5.61 (4.5-5.9) X10^6/uL Hgb 14.5 (13.5-17.5) g/dL Hct 44.3 (41-53) % MCV 79.0 L (80-100) fL MCH 25.9 L (26-34) PG MCHC 32.7 (30-36) % RDW 13.8 (11.6-14.8) % Plt Count 396 (150-400) X10^3/uL Neut % (Auto) 58.3 (50-75) % Lymph % (Auto) 18.6 L (25-40) % [place] % (Auto) 18.5 H (3-14) % Eos % (Auto) 3.9 (2-4) % Baso % (Auto) 0.7 (0-2) % Neut # (Auto) 5700 (0737-6903) /uL Lymph # (Auto) 1800 (9316-9260) /uL [place] # (Auto) 1800 H (0-900) /uL Eos # (Auto) 400 (0-450) /uL Baso # (Auto) 100 (0-100) /uL Sodium 139 (137-145) mmol/L Potassium 3.6 (3.4-5.1) mmol/L Chloride 98 (98-107) mmol/L Carbon Dioxide 28 (22-32) mmol/L BUN 7 L (9-20) mg/dL Creatinine 0.88 (0.66-1.25) mg/dL Estimated GFR > 60 (>60) mL/min BUN/Creatinine Ratio 8.0 (6-22) Glucose 95 (70-100) mg/dL Calcium 9.5 (8.4-10.2) mg/dL Magnesium 1.7 (1.6-2.3) mg/dL Total Bilirubin 0.5 (0.2-1.3) mg/dL AST 27 (17-59) IU/L ALT 17 (<50) IU/L Alkaline Phosphatase 105 (38-126) U/L Total Creatine Kinase 71 (55-170) U/L CK-MB (CK-2) TNP CK-MB (CK-2) Rel Index TNP Troponin I < 0.012 (0.01-0.034) ng/mL Total Protein 9.6 H (6.3-8.2) g/dL Albumin 4.6 (3.5-5.0) g/dL Globulin 5.0 H (1.7-4.1) g/dL Albumin/Globulin Ratio 0.9 L (1.0-2.8) Lipase 24 (23-300) U/L Urine Color Yellow Urine Appearance Clear Urine pH 5.5 (4.5-8.0) Ur Specific [place] 1.020 (1.000-1.035) Urine Protein 1+ H (Negative) Urine Glucose (UA) Negative (Negative) g/dL Urine Ketones 3+ H (NEGATIVE) Urine Occult Blood 3+ H (Negative) Urine Nitrate Negative (Negative) Urine Bilirubin Negative (NEGATIVE) Urine Urobilinogen 0.2 (0.2) E.U./dL Ur Leukocyte Esterase Negative (NEGATIVE) Urine RBC 5-10/hpf H (0-5/HPF) Urine WBC None seen (0-5/HPF) Amorphous Sediment 1+ Urine Bacteria None seen (None) Urine Mucus 1+ H (Negative) Ur Culture Indicated? Cult not indicated 01/15/22 Range/Units 19:17 WBC (4.5-11.0) X10^3/uL RBC (4.5-5.9) X10^6/uL Hgb (13.5-17.5) g/dL Hct (41-53) % MCV (80-100) fL MCH (26-34) PG MCHC (30-36) % RDW (11.6-14.8) % Plt Count (150-400) X10^3/uL Neut % (Auto) (50-75) % Lymph % (Auto) (25-40) % [place] % (Auto) (3-14) % Eos % (Auto) (2-4) % Baso % (Auto) (0-2) % Neut # (Auto) (9765-0367) /uL Lymph # (Auto) (0592-5356) /uL [place] # (Auto) (0-900) /uL Eos # (Auto) (0-450) /uL Baso # (Auto) (0-100) /uL Sodium (137-145) mmol/L Potassium (3.4-5.1) mmol/L Chloride (98-107) mmol/L Carbon Dioxide (22-32) mmol/L BUN (9-20) mg/dL Creatinine (0.66-1.25) mg/dL Estimated GFR (>60) mL/min BUN/Creatinine Ratio (6-22) Glucose (70-100) mg/dL Calcium (8.4-10.2) mg/dL Magnesium (1.6-2.3) mg/dL Total Bilirubin (0.2-1.3) mg/dL AST (17-59) IU/L ALT (<50) IU/L Alkaline Phosphatase (38-126) U/L Total Creatine Kinase 62 (55-170) U/L CK-MB (CK-2) TNP CK-MB (CK-2) Rel Index TNP Troponin I < 0.012 (0.01-0.034) ng/mL Total Protein (6.3-8.2) g/dL Albumin (3.5-5.0) g/dL Globulin (1.7-4.1) g/dL Albumin/Globulin Ratio (1.0-2.8) Lipase (23-300) U/L Urine Color Urine Appearance Urine pH (4.5-8.0) Ur Specific [place] (1.000-1.035) Urine Protein (Negative) Urine Glucose (UA) (Negative) g/dL Urine Ketones (NEGATIVE) Urine Occult Blood (Negative) Urine Nitrate (Negative) Urine Bilirubin (NEGATIVE) Urine Urobilinogen (0.2) E.U./dL Ur Leukocyte Esterase (NEGATIVE) Urine RBC (0-5/HPF) Urine WBC (0-5/HPF) Amorphous Sediment Urine Bacteria (None) Urine Mucus (Negative) Ur Culture Indicated? Imaging Data Chest x-ray: Radiologist's Impression: PROCEDURE:? XR CHEST 1V ? INDICATIONS:? chest pain ? TECHNIQUE:? One view of the chest was acquired.? ? COMPARISON:? [facility], , XR CHEST 1V, 06/13/2018, 9:17. ? FINDINGS:? ? Surgical changes and devices:? None.? ? Lungs and pleura:? Lungs are clear.? No pleural effusions or pneumothorax.? ? Mediastinum:? Mediastinal contours appear normal.? Heart size is normal.? ? Bones and chest wall:? No suspicious bony lesions.? Overlying soft tissues appear unremarkable.? ? IMPRESSION:? No acute cardiopulmonary process demonstrated radiographically. ? ? Dictated by: Nahum Urias M.D. on 01/15/2022 at 13:58 ? ? Approved by: Nahum Urias M.D. on 01/15/2022 at 13:59 ? ECG Data Interpretation: EKG has normal sinus rhythm with no obvious left bundle-branch block ST segment elevation or Q-wave morphology. EKG also reviewed by Dr. Dick. [facility] Narrative Medical decision making narrative: Patient is a 41-year-old male who presents to the emergency room today with complaint of chest pressure and abdominal pain associated nausea vomiting and hematochezia for about 1 month. States the chest pressure is periodic but the abdominal pain and hematochezia has been consistent. Denies shortness of breath or chest pain. Labs were ordered and were not consistent with GI bleeding at this time the patient did have blood in his urine. EKG was also unremarkable for cardiac etiology. Initial cardiac enzymes were negative cardiac enzymes were repeated after 3 hours to wait results. If repeat cardiac enzymes are negative plan is to refer patient to general surgery for consult discharged home with PPIs and instructions to contacted my care provider for any nonemergent concerns and to report to the emergency room for any emergent concerns. <Yinka Mccall, DO - Last Filed: 01/15/22 21:47> Lab Data Labs: Lab Results 01/15/22 01/15/22 01/15/22 Range/Units 15:10 15:10 17:21 WBC 9.8 (4.5-11.0) X10^3/uL RBC 5.61 (4.5-5.9) X10^6/uL Hgb 14.5 (13.5-17.5) g/dL Hct 44.3 (41-53) % MCV 79.0 L (80-100) fL MCH 25.9 L (26-34) PG MCHC 32.7 (30-36) % RDW 13.8 (11.6-14.8) % Plt Count 396 (150-400) X10^3/uL Neut % (Auto) 58.3 (50-75) % Lymph % (Auto) 18.6 L (25-40) % [place] % (Auto) 18.5 H (3-14) % Eos % (Auto) 3.9 (2-4) % Baso % (Auto) 0.7 (0-2) % Neut # (Auto) 5700 (2203-9903) /uL Lymph # (Auto) 1800 (2787-4905) /uL [place] # (Auto) 1800 H (0-900) /uL Eos # (Auto) 400 (0-450) /uL Baso # (Auto) 100 (0-100) /uL Sodium 139 (137-145) mmol/L Potassium 3.6 (3.4-5.1) mmol/L Chloride 98 (98-107) mmol/L Carbon Dioxide 28 (22-32) mmol/L BUN 7 L (9-20) mg/dL Creatinine 0.88 (0.66-1.25) mg/dL Estimated GFR > 60 (>60) mL/min BUN/Creatinine Ratio 8.0 (6-22) Glucose 95 (70-100) mg/dL Calcium 9.5 (8.4-10.2) mg/dL Magnesium 1.7 (1.6-2.3) mg/dL Total Bilirubin 0.5 (0.2-1.3) mg/dL AST 27 (17-59) IU/L ALT 17 (<50) IU/L Alkaline Phosphatase 105 (38-126) U/L Total Creatine Kinase 71 (55-170) U/L CK-MB (CK-2) TNP CK-MB (CK-2) Rel Index TNP Troponin I < 0.012 (0.01-0.034) ng/mL Total Protein 9.6 H (6.3-8.2) g/dL Albumin 4.6 (3.5-5.0) g/dL Globulin 5.0 H (1.7-4.1) g/dL Albumin/Globulin Ratio 0.9 L (1.0-2.8) Lipase 24 (23-300) U/L Urine Color Yellow Urine Appearance Clear Urine pH 5.5 (4.5-8.0) Ur Specific [place] 1.020 (1.000-1.035) Urine Protein 1+ H (Negative) Urine Glucose (UA) Negative (Negative) g/dL Urine Ketones 3+ H (NEGATIVE) Urine Occult Blood 3+ H (Negative) Urine Nitrate Negative (Negative) Urine Bilirubin Negative (NEGATIVE) Urine Urobilinogen 0.2 (0.2) E.U./dL Ur Leukocyte Esterase Negative (NEGATIVE) Urine RBC 5-10/hpf H (0-5/HPF) Urine WBC None seen (0-5/HPF) Amorphous Sediment 1+ Urine Bacteria None seen (None) Urine Mucus 1+ H (Negative) Ur Culture Indicated? Cult not indicated 01/15/22 Range/Units 19:17 WBC (4.5-11.0) X10^3/uL RBC (4.5-5.9) X10^6/uL Hgb (13.5-17.5) g/dL Hct (41-53) % MCV (80-100) fL MCH (26-34) PG MCHC (30-36) % RDW (11.6-14.8) % Plt Count (150-400) X10^3/uL Neut % (Auto) (50-75) % Lymph % (Auto) (25-40) % [place] % (Auto) (3-14) % Eos % (Auto) (2-4) % Baso % (Auto) (0-2) % Neut # (Auto) (7424-7611) /uL Lymph # (Auto) (2847-4626) /uL [place] # (Auto) (0-900) /uL Eos # (Auto) (0-450) /uL Baso # (Auto) (0-100) /uL Sodium (137-145) mmol/L Potassium (3.4-5.1) mmol/L Chloride (98-107) mmol/L Carbon Dioxide (22-32) mmol/L BUN (9-20) mg/dL Creatinine (0.66-1.25) mg/dL Estimated GFR (>60) mL/min BUN/Creatinine Ratio (6-22) Glucose (70-100) mg/dL Calcium (8.4-10.2) mg/dL Magnesium (1.6-2.3) mg/dL Total Bilirubin (0.2-1.3) mg/dL AST (17-59) IU/L ALT (<50) IU/L Alkaline Phosphatase (38-126) U/L Total Creatine Kinase 62 (55-170) U/L CK-MB (CK-2) TNP CK-MB (CK-2) Rel Index TNP Troponin I < 0.012 (0.01-0.034) ng/mL Total Protein (6.3-8.2) g/dL Albumin (3.5-5.0) g/dL Globulin (1.7-4.1) g/dL Albumin/Globulin Ratio (1.0-2.8) Lipase (23-300) U/L Urine Color Urine Appearance Urine pH (4.5-8.0) Ur Specific [place] (1.000-1.035) Urine Protein (Negative) Urine Glucose (UA) (Negative) g/dL Urine Ketones (NEGATIVE) Urine Occult Blood (Negative) Urine Nitrate (Negative) Urine Bilirubin (NEGATIVE) Urine Urobilinogen (0.2) E.U./dL Ur Leukocyte Esterase (NEGATIVE) Urine RBC (0-5/HPF) Urine WBC (0-5/HPF) Amorphous Sediment Urine Bacteria (None) Urine Mucus (Negative) Ur Culture Indicated? Discharge Plan Departure Patient Disposition: Home Clinical Impression: Hematochezia, Abdominal pain, Hematuria Instructions: Blood in Urine, DI for Abdominal Pain-Adult, DI for Hematuria Activity Restrictions/Additional Instructions: *You have been diagnosed with blood in stool blood in urine and periodic pressure in your chest. Labs were done and did not discover any cardiac-related concerns. However do have concerns and your urine and stool. I have ordered some medicine to help with your abdominal pain and urine nausea. I have also referred you to general surgery surgery. The general surgeon's name is Dr. Carrillo and their phone number is [phone]. I suggest you contact them next week. Also please return to the emergency room if any emergent concerns arise. [ ] *What to do: *Please continue to take your regular medications as directed. [x] New medication prescriptions sent to your pharmacy: [ ] [ ] New medication written as a paper prescription [ ] No new medications given *Please follow up with your primary care provider in 2-3 days, call for an appointment. Let them know you were seen in the Emergency Department and that we ask that you be seen in follow up. We will electronically transmit a record of today's note if your PCP is in our system *If you do not have a primary care provider please contact the [facility] Resource line at [phone]. They will ask some questions about your medical history and help get you set up with a doctor in the community. *Return to Emergency Department if you should have any new, worsening or concerning symptoms, such as [fever greater than 101 F, shaking chills, worsening pain, persistent vomiting or other bothersome symptoms] Prescriptions: New omeprazole 40 mg capsule,delayed release(DR/EC) 40 mg PO BID Qty: 20 0RF ondansetron 4 mg film 4 mg PO Q8H PRN (Reason: nausea and vomiting) Qty: 30 0RF No Action meloxicam [Mobic] 7.5 mg tablet 7.5 mg PO BID Qty: 20 0RF amoxicillin-pot clavulanate [Augmentin] 875-125 mg tablet 1 tab PO BID Qty: 20 0RF trazodone 50 mg tablet 50 mg PO BEDTIME MDD 50 mg PRN (Reason: insomnia) Qty: 30 0RF celecoxib [Celebrex] 200 mg capsule 200 mg PO DAILY Qty: 30 1RF omeprazole 40 mg capsule,delayed release(DR/EC) 20 mg PO DAILY Qty: 30 1RF Referrals: Edvin Cruz MD [Primary Care Provider] - Wesley Carrillo MD [Physician] - Visit Report Forms: Patient Portal/API <Yinka Mccall DO - Last Filed: 01/15/22 21:47> Cosign ED Attending Cosignature Attestation: Dr Mccall Co-Sign Statement: I was available for consultation during this patient's emergency department visit. This chart is signed by myself for administrative purposes only. I did not have direct contact with this patient during this visit. They were seen independently by the APC.
[2022-01-15 18:22] LABS: Appearance Urine UA CLEAR; Bilirubin Urine UA NEGATIVE (NEGATIVE); Color Urine UA YELLOW; Glucose Urine UA NEGATIVE (Negative); Ketones Urine UA 3+ (NEGATIVE); Leukocyte Esterase Urine UA NEGATIVE (NEGATIVE); Nitrite Urine UA NEGATIVE (Negative); Occult Blood Urine UA 3+ (Negative); Protein Urine UA 1+ (Negative); Urobilinogen Urine UA 0.2 E.U./dL (0.2); pH Urine UA 5.5 (4.5-8.0)
[2022-01-15 18:29] LABS: Amorphous Sediment Urine 1+; Bacteria Urine None Seen; Culture Indicated Urine Cult Not Indicated; Mucus Urine 1+ (Negative); RBC Urine 5-10/HPF (0-5/HPF); WBC Urine None Seen (0-5/HPF)
[2022-01-15] MEDS: ONDANSETRON 4 MG/2 ML INJ IV (19:09)
[2022-01-15 19:49] LABS: Creatine Kinase 62 U/L (55-170)
[2022-01-15 20:02] LABS: Troponin I < 0.012 ng/mL (0.01-0.034)
== END 2022-01-15 20:27 | disposition home or self-care (01) ==
PROVIDERS: Emergency Medicine; Emergency Provider Physician Assistant; PCP Internal Medicine
DX: R10.13 Epigastric pain (principal); K92.1 Melena; R31.9 Hematuria, unspecified; R11.2 Nausea with vomiting, unspecified; R07.9 Chest pain, unspecified
CPT/HCPCS: 36415; 71045; 80053; 81001; 82550; 83690; 83735; 84484; 85025; 93005; 96374; 99284; J2405

== ENCOUNTER → 2022-02-07 17:18 | Outpatient (CLI) | payer OTHER, SELFPAY | PROVIDERS: PCP Internal Medicine; Visit Provider Student in an Organized Health Care Education/Training Program | DX: R30.0 Dysuria (principal) | CPT/HCPCS: 87086 ==

== ENCOUNTER → 2022-02-07 17:40 | Outpatient (CLI) | payer OTHER, SELFPAY ==
--- NOTE | 2022-02-07 17:41 | DI.RAD.S_ITS ---
PROCEDURE: XR CHEST 2V INDICATIONS: chest and flank pain TECHNIQUE: 2 views of the chest were acquired. COMPARISON: [facility], CR, XR CHEST 1V, 01/15/2022, 13:51. FINDINGS: Surgical changes and devices: None. Lungs and pleura: Linear scarring/atelectasis at right lung base is seen. No focal infiltrate. No pleural effusions or pneumothorax. Mediastinum: Mediastinal contours are normal. Heart size is normal. Bones and chest wall: No suspicious bony abnormalities. Soft tissues appear unremarkable. IMPRESSION: Right basilar atelectasis. No focal infiltrate, significant pleural effusion or pneumothorax. Dictated by: Jaydon Cornejo M.D. on 02/07/2022 at 18:15 Approved by: Jaydon Cornejo M.D. on 02/07/2022 at 18:15
--- NOTE | 2022-02-07 17:41 | DI.RAD.S_ITS ---
PROCEDURE: XR LUMBAR SPINE 2-3V INDICATIONS: chest and flank pain TECHNIQUE: 3 views of the lumbar spine were acquired. COMPARISON: [facility], CR, XR LUMBAR SPINE 2-3V, 04/30/2018, 8:35. FINDINGS: Bones: 5 [id number] vertebrae are present. There is normal bony alignment. No vertebral body compression fractures. No suspicious bony lesions. Soft tissues: Overlying bowel gas pattern is normal. No suspicious soft tissue calcifications. IMPRESSION: No acute compression fracture or spondylolisthesis in lumbar spine. No gross paraspinous soft tissue abnormalities. Dictated by: Jaydon Cornejo M.D. on 02/07/2022 at 18:14 Approved by: Jaydon Cornejo M.D. on 02/07/2022 at 18:15
--- NOTE | 2022-02-07 17:41 | DI.RAD.S_ITS ---
PROCEDURE: XR KUB INDICATIONS: right flank pain TECHNIQUE: One view of the abdomen acquired. COMPARISON: None. FINDINGS: Surgical changes and devices: None. Bowel: Bowel gas pattern is normal. Soft tissues: No suspicious abdominal calcifications. Visualized solid organ contours appear normal in size. Bones: No suspicious bony lesions. IMPRESSION: No evidence of bowel obstruction or gross free air. No gross renal calcifications. Dictated by: Jaydon Cornejo M.D. on 02/07/2022 at 18:16 Approved by: Jaydon Cornejo M.D. on 02/07/2022 at 18:16
== END ==
LOC: RAD 17:41
PROVIDERS: PCP Internal Medicine; Referring Provider Student in an Organized Health Care Education/Training Program; Visit Provider Student in an Organized Health Care Education/Training Program
DX: R10.9 Unspecified abdominal pain; R30.0 Dysuria; M54.50 Low back pain, unspecified; R07.9 Chest pain, unspecified; J98.11 Atelectasis
CPT/HCPCS: 71046; 72100; 74018; 87086

== ENCOUNTER → 2022-03-14 09:25 | Outpatient (CLI) | payer OTHER, SELFPAY ==
[2022-03-14 11:25] LABS: COVID19 -Nasal RAPID Negative (Negative)
== END ==
PROVIDERS: PCP Internal Medicine; Visit Provider Surgery
DX: Z01.812 Encounter for preprocedural laboratory examination (principal); Z20.822 Contact with and (suspected) exposure to COVID-19
CPT/HCPCS: 87635; C9803

== ENCOUNTER 2024-03-12 16:03 | Emergency (ER) | payer OTHER, SELFPAY ==
[2024-03-12 16:12] VITALS: BP 187/124; PULSE 96; RESP 16; TEMP 36.8; O2SAT 99; BMI 29.0
--- NOTE | 2024-03-12 17:57 | ED.DENTAL ---
HPI - Dental/Oral <Merary Kapoor PA-C - Last Filed: 03/12/24 18:20> General Chief complaint: Dental/Oral Stated complaint: swollen jaw Time Seen by Provider: 03/12/24 16:55 Source: patient and family History of Present Illness HPI Narrative: 44-year-old male with poor dentition presents to the ED with 2 days of worsening dental pain in the right lower side. Patient states he has had prior abscesses, has several teeth that need attention and need to be pulled, however his insurance is unable to cover it. In the meanwhile, patient states that his right lower tooth started hurting 2 days ago, states that he is tried ibuprofen with absolutely no relief. No fever, nausea, vomiting. Sporadic chills. Teeth map: 1. Related Data Previous Rx's Medication Instructions Recorded ondansetron 4 mg oral soluble film 4 mg PO Q8H PRN nausea and 01/15/22 vomiting #30 ea baclofen 10 mg tablet 10 mg PO TID #30 tabs 02/07/22 amoxicillin 875 mg-potassium 1 tab PO Q12H 14 days #28 tabs 03/12/24 clavulanate 125 mg tablet oxycodone-acetaminophen 5 mg-325 1 tab PO Q6H PRN pain 3 days #12 03/12/24 mg tablet (Percocet) tabs Allergies Allergy/AdvReac Type Severity Reaction Status Date / Time tramadol [TRAMADOL] Allergy Mild ITCH Verified 03/12/24 16:17 Review of Systems <Merary Kapoor PA-C - Last Filed: 03/12/24 18:20> Constitutional Constitutional: Denies chills, Denies fatigue, Denies fever(s), Denies frequent falls, Denies lethargy and Denies weakness Eyes Eyes: Denies change in vision, Denies eye discharge, Denies irritation and Denies loss of vision ENT Ears, Nose, Mouth, and Throat: Denies change in voice, Reports dental pain, Denies dizziness, Denies neck pain, Denies sore throat and Denies throat swelling Cardiovascular Cardiovascular: Denies chest pain, Denies irregular heart rhythm, Denies lightheadedness, Denies palpitations, Denies dyspnea, Denies dyspnea on exertion and Denies orthopnea Respiratory Respiratory: Denies cough, Denies dyspnea, Denies dyspnea on exertion and Denies wheezing Gastrointestinal Gastrointestinal: Denies abdominal pain, Denies change in bowel habits, Denies diarrhea, Denies nausea and Denies vomiting Musculoskeletal Musculoskeletal: Denies neck pain and Denies numbness Integumentary/Breasts Skin/Breast: Denies pruritus, Denies erythema, Denies rash and Denies wounds Neurologic Neurologic: Denies behavioral changes, Denies confusion, Denies dizziness, Denies frequent falls, Denies loss of vision, Denies numbness and Denies weakness Psychiatric Psychiatric: Denies anxiety, Denies behavioral changes, Denies confusion, Denies depression, Denies homicidal ideation and Denies suicidal ideation Endocrine Endocrine: Denies fatigue, Denies flushing and Denies palpitations Hematologic/Lymphatic Hematologic/Lymphatic: Denies easy bruising Allergic/Immunologic Allergic/Immunologic: Denies urticaria, Denies throat swelling and Denies wheezing Patient History <Merary Kapoor PA-C - Last Filed: 03/12/24 18:20> Medical History (Updated 03/12/24 @ 18:10 by Merary Kapoor PA-C) Left hand fracture HTN (hypertension) Sciatica Surgical History History of eye surgery Family History Mother Sickle cell anemia Back pain Social History Smoking Status: Never smoker alcohol intake: never substance use type: marijuana Smoking Status: Never smoker alcohol intake frequency: 0-2 drinks per day Substance Use Type: marijuana Exam <Merary Kapoor PA-C - Last Filed: 03/12/24 18:20> Narrative Exam Narrative: Const General:?cooperative, healthy appearing and comfortable [facility] Head:?normal to inspection Ears:?hearing grossly normal bilaterally Nose:?external nose normal Face and sinus:?normal facial exam and sinuses nontender Mouth:?oral mucosae normal; overall poor dentition; there appears to be a dental abscess associated with tooth 29. There also appears to be a loose tooth on the left upper side, however not infected. This loose tooth might need to be extracted. Throat:?posterior oropharynx normal Eyes General:?appearance normal, both eyes and all related structures Neck Neck:?normal visual inspection and no lymphadenopathy noted Resp Effort & Inspection:?normal respiratory effort Auscultation:?clear to auscultation bilaterally Cardio Rate:?regular rate Rhythm:?regular rhythm Neuro General:?patient alert, patient awake and patient oriented x3 Initial Vital Signs Initial Vital Signs: Vital Signs Temperature 98.3 F 03/12/24 16:12 Pulse Rate 96 H 03/12/24 16:12 Respiratory Rate 16 03/12/24 16:12 Blood Pressure 187/124 H 03/12/24 16:12 Pulse Oximetry 99 03/12/24 16:12 Oxygen Delivery Method Room Air 03/12/24 16:12 <Noah Sorenson MD - Last Filed: 03/12/24 18:58> Initial Vital Signs Initial Vital Signs: Vital Signs Temperature 98.3 F 03/12/24 16:12 Pulse Rate 96 H 03/12/24 16:12 Respiratory Rate 16 03/12/24 16:12 Blood Pressure 187/124 H 03/12/24 16:12 Pulse Oximetry 99 03/12/24 16:12 Oxygen Delivery Method Room Air 03/12/24 16:12 Course <Merary Kapoor PA-C - Last Filed: 03/12/24 18:20> Vital Signs Vital signs: Vital Signs - 8 hr 03/12/24 16:12 03/12/24 18:26 Temperature 98.3 F Pulse Rate 96 H 92 H Respiratory Rate 16 18 Blood Pressure 187/124 H 192/100 H Pulse Oximetry 99 100 Oxygen Delivery Method Room Air Room Air <Noah Sorenson MD - Last Filed: 03/12/24 18:58> Vital Signs Vital signs: Vital Signs - 8 hr 03/12/24 16:12 03/12/24 18:26 Temperature 98.3 F Pulse Rate 96 H 92 H Respiratory Rate 16 18 Blood Pressure 187/124 H 192/100 H Pulse Oximetry 99 100 Oxygen Delivery Method Room Air Room Air MDM - Dental/Oral <Merary Kapoor PA-C - Last Filed: 03/12/24 18:20> MDM Narrative Medical decision making narrative: 44-year-old male with poor dentition presents to the ED with 2 days of worsening dental pain in the right lower side. Physical exam is consistent with a dental abscess of the lower right tooth. Prescribed Augmentin, Percocet. Counseled patient that pain medication and antibiotics are a temporizing measure and not definitive and curative. Recommend follow-up with his dentist as soon as possible for definitive treatment of the abscess. ED return precautions were discussed with patient. Patient verbalized understanding. Medical records reviewed: Yes Discharge Plan Departure Patient Disposition: Home Clinical Impression: Dental abscess Instructions: Tooth Abscess Activity Restrictions/Additional Instructions: You were evaluated in the ED today for dental pain. It appears that you have a dental abscess that is causing your symptoms. You have been prescribed pain medicine and antibiotics. Please note that the antibiotics are not curative, however will prevent the abscess from worsening. It is important that you see a dentist as soon as possible to get the abscess taken care of. Please note that the pain medication that you have been prescribed can make you sleepy, therefore avoid taking it when you are driving or operating machinery. Return to the ED if you have worsening symptoms. Prescriptions: New amoxicillin-pot clavulanate 875-125 mg tablet 1 tab PO Q12H 14 Days Qty: 28 0RF oxycodone-acetaminophen [Percocet] 5-325 mg tablet 1 tab PO Q6H PRN (Reason: pain) 3 Days Qty: 12 0RF No Action baclofen 10 mg tablet 10 mg PO TID Qty: 30 0RF ondansetron 4 mg film 4 mg PO Q8H PRN (Reason: nausea and vomiting) Qty: 30 0RF Referrals: Edvin Cruz MD [Primary Care Provider] - Stand Alone Forms: Patient Portal/API/Survey ED Sign-out <Noah Sorenson MD - Last Filed: 03/12/24 18:58> Cosign ED Attending Cosjesusature Attestation: I was immediately available in the department for consultation. This documentation has been reviewed and I agree with assessment and plan. Supervised by Noah Sorenson MD
[2024-03-12 18:26] VITALS: BP 192/100; PULSE 92; RESP 18; O2SAT 100
== END 2024-03-12 18:31 | disposition home or self-care (01) ==
PROVIDERS: Emergency Provider Student in an Organized Health Care Education/Training Program; PCP Internal Medicine
DX: K04.7 Periapical abscess without sinus (principal)
CPT/HCPCS: 99281

== ENCOUNTER 2025-01-30 02:36 | Emergency (ER) | payer OTHER, SELFPAY ==
--- NOTE | 2025-01-30 02:39 | ED.DENTAL ---
HPI - Dental/Oral General Chief complaint: Dental/Oral Stated complaint: Dental Pain, Facial Swelling Time Seen by Provider: 01/30/25 02:38 Source: patient, RN notes reviewed and old records reviewed Mode of arrival: Ambulatory Limitations: no limitations History of Present Illness HPI Narrative: 44-year-old male history of poor dentition with prior dental infections presents with complaint of concern for dental infection and swelling in the right lower side of his jaw. Notes he has had prior abscess. Patient denies any fevers no swelling in his tongue or airway. No changes to voice. He has noticed swelling in the right lower jaw and radiating up towards the cheek. Has not had any nausea or vomiting. Denies any other symptoms. Patient denies any other medical issues states no daily medications. Does not currently have a dentist. Related Data Previous Rx's ?Medication ?Instructions ?Recorded ondansetron 4 mg oral soluble film 4 mg PO Q8H PRN nausea and 01/15/22 vomiting #30 ea baclofen 10 mg tablet 10 mg PO TID #30 tabs 02/07/22 amoxicillin 875 mg-potassium 1 tab PO BID #20 tabs 01/30/25 clavulanate 125 mg tablet Allergies Allergy/AdvReac Type Severity Reaction Status Date / Time tramadol (TRAMADOL) Allergy Mild ITCH Verified 01/30/25 02:43 Review of Systems Review of Systems ROS Unobtainable: All systems reviewed & are unremarkable except as noted in HPI and below Patient History Medical History (Updated 01/30/25 @ 02:46 by Dee Hernandez DO) Left hand fracture HTN (hypertension) Sciatica Surgical History History of eye surgery Family History Mother Sickle cell anemia Back pain Social History alcohol intake: never substance use type: marijuana alcohol intake frequency: 0-2 drinks per day Exam Narrative Exam Narrative: GEN: well nourished, well appearing male, alert and oriented x 3, patient appears to be in mild distress. HEENT: Atraumatic, pupils are equal round reactive to light, extraocular movements are intact, nares are clear, TMs are clear with no fluid, there is no conjunctival pallor. Throat is clear without any exudates, erythema, tonsillar enlargement or uvular deviation, patient has a poor dentition, has swelling in the right submandibular region over the right cheek. No warmth or erythema. No fluctuance or fluid collections or induration. Patient has a normal speech. Swelling of the tongue airway or oropharynx appreciated. HEART: Regular rate and rhythm without murmur, clicks, rubs. LUNGS:Lungs clear to auscultation, no wheezes, rales, crackles, chest moves symmetrically ABD:bowel sounds normal, soft, non-tender, no guarding, rebound, rigidity, no masses noted, no hepatosplenomegaly MSCL: full range of motion, normal gait NEURO:CN 2-12 intact Initial Vital Signs Initial Vital Signs: Vital Signs Temperature 98.9 F 01/30/25 02:43 Pulse Rate 80 01/30/25 02:43 Respiratory Rate 16 01/30/25 02:43 Blood Pressure 173/114 H 01/30/25 02:43 Pulse Oximetry 97 01/30/25 02:43 Oxygen Delivery Method Room Air 01/30/25 02:43 Course Orders Ordered: Discontinued Medications Amoxicillin/Clavulanate Potassium (Amoxicillin/Clav 875/125 Mg) 1 tab PO NOW ONE Stop: 01/30/25 02:45 Last Admin: 01/30/25 02:46 Dose: 1 tab Vital Signs Vital signs: Vital Signs - 8 hr 01/30/25 02:43 Temperature 98.9 F Pulse Rate 80 Respiratory Rate 16 Blood Pressure 173/114 H Pulse Oximetry 97 Oxygen Delivery Method Room Air Discharge Plan Departure Patient Disposition: Home Clinical Impression: Dental infection Instructions: Tooth Abscess Activity Restrictions/Additional Instructions: I do recommend you follow up with a dentist. Take oral antibiotics until completed. Prescription was sent to [facility] in [place]. Please return if you develop fevers, worsening swelling, any swelling of the lips tongue or airway, any changes to voice, difficulty with breathing, persistent vomiting or other new or concerning changes. Prescriptions: New amoxicillin-pot clavulanate 875-125 mg tablet 1 tab PO BID Qty: 20 0RF No Action baclofen 10 mg tablet 10 mg PO TID Qty: 30 0RF ondansetron 4 mg film 4 mg PO Q8H PRN (Reason: nausea and vomiting) Qty: 30 0RF Referrals: Edvin Cruz MD [Primary Care Provider, Wound Care] Stand Alone Forms: Patient Portal/API
[2025-01-30 02:43] VITALS: BP 173/114; PULSE 80; RESP 16; TEMP 37.2; O2SAT 97; BMI 28.3
[2025-01-30] MEDS: AMOXICILLIN/CLAV 875/125 MG 1 TAB PO (02:46)
== END 2025-01-30 02:50 | disposition home or self-care (01) ==
PROVIDERS: Emergency Provider Emergency Medicine; PCP Internal Medicine
DX: K04.7 Periapical abscess without sinus (principal)
CPT/HCPCS: 99283

== ENCOUNTER 2025-03-06 14:55 | Emergency (ER) | payer OTHER, SELFPAY ==
[2025-03-06 15:13] VITALS: BP 183/112; PULSE 80; RESP 15; TEMP 36.2; O2SAT 98; BMI 26.4
[2025-03-06 16:01] LABS: Influenza A - CEPHEID Flu A POSITIVE (NEGATIVE); Influenza B - CEPHEID Flu B NEGATIVE (NEGATIVE)
[2025-03-06 16:02] LABS: COVID-19 CEPHEID 4-PLEX PCR Negative (Negative)
--- NOTE | 2025-03-06 17:22 | ED.URI ---
HPI - URI/Sore Throat General Chief Complaint: Upper Respiratory Symptoms Stated Complaint: sick since fri, hot flashes, vomiting, headaches Time Seen by Provider: 03/06/25 17:15 Source: patient Mode of arrival: Ambulatory History of Present Illness HPI Narrative: This is a 45-year-old male presenting to emergency department due to myalgia, cough, fevers, nausea, fatigue for the last 6 days. He denies any chest pain or shortness of breath. No known sick contacts. No recent travel. Related Data Previous Rx's ?Medication ?Instructions ?Recorded ondansetron 4 mg oral soluble film 4 mg PO Q8H PRN nausea and 01/15/22 vomiting #30 ea baclofen 10 mg tablet 10 mg PO TID #30 tabs 02/07/22 amoxicillin 875 mg-potassium 1 tab PO BID #20 tabs 01/30/25 clavulanate 125 mg tablet oseltamivir 75 mg capsule (Tamiflu) 75 mg PO BID 5 days #10 caps 03/06/25 Allergies Allergy/AdvReac Type Severity Reaction Status Date / Time tramadol (TRAMADOL) Allergy Mild ITCH Verified 01/30/25 02:43 Review of Systems Review of Systems Narrative: Reports myalgia, cough, fevers, nausea, fatigue GENERAL: Denies chills, , malaise, fever, sweats. HEENT: Denies sinus pain, ear pain, sore throat, difficulty swallowing, dizziness. RESPIRATORY: Denies dyspnea, , wheezing, hemoptysis, sputum. CARDIOVASCULAR: Denies chest pain, palpitations, orthopnea, edema, GASTROINTESTINAL: Denies , vomiting, abdominal pain, diarrhea, constipation, melena. : Denies dysuria, frequency, incontinence, hematuria, urinary retention. MUSCULOSKELETAL: denies weakness, joint pain, or bony pain SKIN: Denies rash, skin lesions, or other NEUROLOGIC: Denies weakness, headache, numbness, change in speech, confusion, seizures, incoordination. PSYCHIATRIC: No concerning psychosocial issues. 12 point review of systems is negative except for those stated above Patient History Medical History (Updated 03/06/25 @ 17:44 by Derekc Vegas PA-C) Left hand fracture HTN (hypertension) Sciatica Surgical History History of eye surgery Family History Mother Sickle cell anemia Back pain Social History alcohol intake: never substance use type: marijuana alcohol intake frequency: 0-2 drinks per day Exam Narrative Exam Narrative: GENERAL: Well-developed patient, in mild distress. HEAD: Atraumatic. Normocephalic. EYES: Pupils equal round and reactive. Extraocular motions intact. No scleral icterus. No injection or drainage. ENT: Nose without bleeding, purulent drainage. Throat without erythema, tonsillar hypertrophy or exudate. Airway patent. NECK: Trachea midline. Non tender EXTREMITIES: No edema or joint tenderness. NEURO: AOx3. SKIN: No rash or erythema of visible areas CARDIOVASCULAR: Regular rate and rhythm without murmurs, gallops, or rubs. RESPIRATORY: Clear to auscultation. Breath sounds equal bilaterally. No wheezes, rales, or rhonchi. GASTROINTESTINAL: Abdomen soft, non-tender, nondistended. BACK: Nontender without deformity or crepitance. No flank tenderness. Initial Vital Signs Initial Vital Signs: Vital Signs Temperature 97.2 F L 03/06/25 15:13 Pulse Rate 80 03/06/25 15:13 Respiratory Rate 15 03/06/25 15:13 Blood Pressure 183/112 H 03/06/25 15:13 Pulse Oximetry 98 03/06/25 15:13 Oxygen Delivery Method Room Air 03/06/25 15:13 Course Orders Ordered: ED Orders 03/06/25 15:17 Covid-19 + FLU A/B + RSV - PCR Stat Vital Signs Vital signs: Vital Signs - 8 hr 03/06/25 15:13 Temperature 97.2 F L Pulse Rate 80 Respiratory Rate 15 Blood Pressure 183/112 H Pulse Oximetry 98 Oxygen Delivery Method Room Air MDM - URI/Sore Throat Lab Data Labs: Lab Results 03/06/25 Range/Units 15:17 SARS-CoV-2 (PCR) Negative (Negative) Influenza A (RT-PCR) Flu a positive H (NEGATIVE) Influenza B (RT-PCR) Flu b negative (NEGATIVE) RSV (PCR) Negative (Negative) MDM Narrative Medical decision making narrative: ED course: This is a 45-year-old male presents to the emergency department due to URI symptoms. Tested positive for influenza A. We will treat with Tamiflu due to concern for risk of progressing to severe disease. CC: Cough Complicating co-morbidities: History of hypertension Data collected from: Previous notes Medical records reviewed:Patient was last seen in this emergency department month ago due to dental infection. History of hypertension. Prescribed Augmentin. Differential considered, but not limited to: Influenza, pneumonia, COVID, bacterial sinusitis Exam documented above, pertinent findings include: Lung sounds clear Lab Test results independently reviewed as above. Pertinent findings: Positive for influenza Imaging studies independently reviewed: None obtained Scores Used: None MIPS Elements: None Consultations: None Treatments: None Re-evaluations: None Discussion: Discussed plan with the patient was comfortable with the plan Diagnosis: Influenza A Disposition: see below, along with detailed discharge instructions that have been reviewed with patient as well as indications for ED re-evaluation and additional outpatient follow up Discharge Plan Departure Patient Disposition: Home Clinical Impression: Influenza A Activity Restrictions/Additional Instructions: Thank you for coming to the [facility] Emergency Department today. As we discussed he test positive for influenza A. Please take medication as prescribed. Please return to the emergency department if you develop any chest pain, shortness of breath or any other concerning signs or symptoms. I hope you feel better soon. Please follow up with your primary care provider within a week if your symptoms continue. If you do not have a primary care provider please contact the [facility] Resource line at [phone]. They will ask some questions about your medical history and help you get set up with a provider in the community. Prescriptions: New oseltamivir [Tamiflu] 75 mg capsule 75 mg PO BID 5 Days Qty: 10 0RF No Action baclofen 10 mg tablet 10 mg PO TID Qty: 30 0RF ondansetron 4 mg film 4 mg PO Q8H PRN (Reason: nausea and vomiting) Qty: 30 0RF amoxicillin-pot clavulanate 875-125 mg tablet 1 tab PO BID Qty: 20 0RF Referrals: Edvin Cruz MD [Primary Care Provider, Wound Care] Stand Alone Forms: Patient Portal/API
[2025-03-06 17:55] VITALS: BP 179/123; PULSE 98; RESP 18; O2SAT 97
== END 2025-03-06 18:02 | disposition home or self-care (01) ==
PROVIDERS: Emergency Medicine; Emergency Provider Physician Assistant Medical; PCP Internal Medicine
DX: J10.1 Influenza due to other identified influenza virus with other respiratory manifestations (principal)
CPT/HCPCS: 87637; 99281; 99282